=== PATIENT | female | born 1980 | race Caucasian/White ===

== ENCOUNTER 2018-02-16 08:47 | Emergency (ER) | payer SELFPAY ==
[2018-02-16] MEDS ORDERED: KETOROLAC 30 MG/ML INJ ONE (09:27)
[2018-02-16] MEDS ORDERED: NA CHLORIDE 0.9% 1,000 ML ONE ×2 (09:27→09:58)
[2018-02-16 09:31] LABS: Urine Blood TRACE (NEG); Urine Glucose NEGATIVE (NEG); Urine Protein 1+ (NEG); Urine Specific Gravity 1.015 (1.005-1.030)
[2018-02-16 09:41] LABS: Urine Bacteria <20 /HPF (<20); Urine Culture Reflex Order REFLEXED
[2018-02-16 09:59] LABS: Albumin 3.5 g/dL (3.4-5.0); Bilirubin Direct 0.2 mg/dL (0-0.2); Bilirubin Total 0.6 mg/dL (0.2-1.0); Potassium 3.7 mmol/L (3.5-5.1); Protein, Total 7.9 g/dL (6.4-8.2)
--- NOTE | 2018-02-16 10:04 | RAD REPORT ---
EXAM DESCRIPTION: CTAbdomen Pelvis W Contrast - 02/16/2018 9:57 am CLINICAL HISTORY: Abdominal pain. IV only;Abd pain;Flank pain COMPARISON: No comparisons TECHNIQUE: Biphasic CT imaging of the abdomen and pelvis was performed with 100 ml non-ionic IV cont rast. All CT scans are performed using dose optimization technique as appropriate and may include automated exposure control or mA/KV adjustment according to patient size. FINDINGS: The lung bases are clear. The liver, spleen, pancreas, adrenal glands and kidneys are within normal limits. No bowel obstruction, free air, free fluid or abscess. The appendix is normal. No evidence of signi ficant lymphadenopathy. Mild mucosal thickening involves the urinary bladder. Mild enhancement of the uroepithelium of both u reters is seen. This finding is most compatible with ascending urinary tract infection. No evidence o f pyelonephritis at this time. No suspicious bony findings. IMPRESSION: Cystitis pattern is identified with evidence of ascending urinary tract infection. No ev idence of pyelonephritis at this time.
[2018-02-16 10:07] LABS: Absolute Lymphocytes (CBC) 0.5 K/uL (0.7-4.9); Absolute Neutrophil 10.6 K/uL (1.8-8.0); Basophils % 0.2 % (0-1.3); Eosinophils % 0.3 % (0-4.4); Hematocrit 30.7 % (36.0-45.0); Lymphocytes % 3.9 % (15.3-44.8); MCH 22.8 pg (27.0-35.0); MCV 71.6 fL (80-100); MPV 9.3 fL (7.6-11.3); Monocytes % 8.3 % (3.3-12.3); RBC Red Blood Cell Count 4.28 M/uL (3.86-4.86)
--- NOTE | 2018-02-16 10:25 | ER ---
Nurse's Notes [facility] Name: Clarissa Stanley Age: 37 yrs Sex: Female : 1980 Arrival Date: 02/16/2018 Time: 08:48 Bed 20 Private MD: Diagnosis: Urinary tract infection, site not specified Presentation: 02/16 08:55 Presenting complaint: Patient states: cloudy urine, mid back pain, lower abd pain that ss began 2 days ago with fever. Transition of care: patient was not received from another setting of care. Onset of symptoms was February 14, 2018. Risk Assessment: Do you want to hurt yourself or someone else? Patient reports no desire to harm self or others. Initial Sepsis Screen: Does the patient meet any 2 criteria? HR > 90 bpm. Does the patient have a suspected source of infection? Yes: Dysuria/Frequency/Urgency/UTI. Care prior to arrival: None. 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 - Social history:: Smoking status: Patient uses tobacco products, smokes one pack cigarettes per day. - Ebola Screening: : Patient denies exposure to infectious person Patient denies travel to an Ebola-affected area in the 21 days before illness onset. Screenin:21 Abuse screen: Denies threats or abuse. Nutritional screening: No deficits noted. em Tuberculosis screening: No symptoms or risk factors identified. Fall Risk None identified. Assessment: 11:00 General: Appears in no apparent distress. uncomfortable, Behavior is calm, cooperative. em Pain: Complains of pain in right low back and right mid back and left mid back and left low back Pain currently is 10 out of 10 on a pain scale. Neuro: Level of Consciousness is awake, alert, obeys commands, Oriented to person, place, time, situation. Cardiovascular: Denies chest pain, Capillary refill < 3 seconds Patient's skin is warm and dry. Respiratory: Airway is patent Respiratory effort is even, unlabored, Respiratory pattern is regular, symmetrical. GI: Abdomen is flat, Reports nausea, Patient currently denies pain, vomiting. : No signs and/or symptoms were reported regarding the genitourinary system. EENT: No signs and/or symptoms were reported regarding the EENT system. Derm: Skin is intact, Skin is pink, warm \T\ dry. Musculoskeletal: Range of motion: intact in all extremities. 12:00 Reassessment: Patient appears in no apparent distress at this time. Patient and/or em family updated on plan of care and expected duration. Pain level reassessed. Patient is alert, oriented x 3, equal unlabored respirations, skin warm/dry/pink. Patient states feeling better. Patient states symptoms have improved. Vital Signs: 09:17 BP 131 / 78; Pulse 97; Resp 16; Temp 99.3(TE); Pulse Ox 98% on R/A; Height 5 ft. 6 in. ss (167.64 cm); Pain 10/10; 10:07 BP 100 / 61; Pulse 72; Resp 18; Pulse Ox 98% on R/A; em 11:00 BP 103 / 64; Pulse 64; Resp 20; Pulse Ox 100% on R/A; aj ED Course: 08:48 Patient arrived in ED. as 08:51 Felecia Zapata NP is PHCP. rh1 08:51 Pradip Hwang MD is Attending Physician. rh1 09:04 Jessee Moss LVN is Primary Nurse. em 09:17 Triage completed. ss 09:17 Urine collected: clean catch specimen, clear, demetrio colored. dh3 09:17 Arm band placed on right wrist. ss 09:33 Initial lab(s) drawn, sent to lab. by psychiatric nursing aide Stephanie James. Inserted dh3 saline lock: 20 gauge in right antecubital area, using aseptic technique. Blood collected. 09:49 Chest Single View XRAY In Process Unspecified. EDMS 09:53 CT completed. Patient moved to CT via wheelchair. Patient moved back from CT. cw1 09:57 CT Abd/Pelvis - W/Contrast In Process Unspecified. EDMS 10:21 Patient has correct armband on for positive identification. Bed in low position. Call em light in reach. Adult w/ patient. 11:00 No provider procedures requiring assistance completed. IV discontinued, intact, aj bleeding controlled, No redness/swelling at site. Pressure dressing applied. Administered Medications: 09:37 Drug: Ketorolac 30 mg Route: IVP; Site: right antecubital; 10:30 Follow up: Response: No adverse reaction; Pain is decreased em 09:41 Drug: NS 0.9% 1000 ml Route: IV; Rate: 1000 ml; Site: right antecubital; em 10:30 Follow up: IV Status: Completed infusion; IV Intake: 1000ml em 10:54 Drug: Rocephin - (cefTRIAXone) 1 grams Route: IVPB; Infused Over: 30 mins; Site: right aj antecubital; 11:01 Follow up: Response: No adverse reaction; IV Status: Completed infusion; IV Intake: 25mlaj Intake: 10:30 IV: 1000ml; Total: 1000ml. em 11:01 IV: 25ml; Total: 1025ml. Outcome: 10:25 Discharge ordered by . 1 11:00 Discharged to home ambulatory, with family. aj 11:00 Condition: good 11:00 Discharge instructions given to patient, family, Instructed on discharge instructions, follow up and referral plans. medication usage, Demonstrated understanding of instructions, follow-up care, medications, Prescriptions given X 1. 11:01 Patient left the ED. Signatures: Dispatcher [employer] Janae Salguero, RN Jessee Kahn, STACK MATCHER STACK MATCHER Cathy Gordillo Shelby, RN RN ss Woodley, Crystal cw1 Felecia Zapata NP FINANCIAL RESERVE CLERK [facility] Sary Adam [facility]
--- NOTE | 2018-02-16 10:26 | EDPHYS ---
Physician Documentation [facility] Name: Clarissa Stanley Age: 37 yrs Sex: Female : 1980 Arrival Date: 02/16/2018 Time: 08:48 Bed 20 Private MD: ED Physician Pradip Hwang HPI: 02/16 09:01 This 37 yrs old Female presents to ER via Ambulatory with complaints of Flank rh1 Pain, Fever, InQuicker. 09:01 The patient complains of pain in the left low back, left mid back, right mid back and rh1 right low back. The pain does not radiate. Onset: The symptoms/episode began/occurred 3 day(s) ago. Modifying factors: The symptoms are alleviated by nothing. the symptoms are aggravated by nothing. Associated signs and symptoms: Pertinent positives: dysuria, fever, nausea, Pertinent negatives: dizziness, urinary frequency, pain radiating to the lower extremities, vomiting. Severity of pain: At its worst the pain was moderate in the emergency department the pain is unchanged. The patient has not experienced similar symptoms in the past. The patient has not recently seen a physician. She began with bilateral flank pain with dysuria 3 days ago. She took AZO, and pain resolved. Her flank pain continues bilaterally, steadily getting worse. For the past 24 hours she has been running subjective fevers at home. + nausea, denies any vomiting, denies any urinary symptoms at this time.. 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 - Social history:: Smoking status: Patient uses tobacco products, smokes one pack cigarettes per day. - Ebola Screening: : Patient denies exposure to infectious person Patient denies travel to an Ebola-affected area in the 21 days before illness onset. ROS: 09:01 Cardiovascular: Negative for chest pain, palpitations, and edema. rh1 09:01 Constitutional: Positive for chills, fever, Negative for poor PO intake. 09:01 Respiratory: Positive for cough, Negative for hemoptysis, shortness of breath, wheezing. 09:01 Abdomen/GI: Positive for nausea, Negative for abdominal pain, vomiting, diarrhea. 09:01 Back: Positive for flank pain, Negative for decreased range of motion, pain with movement, radiated pain. 09:01 : Positive for burning with urination, 2 days ago, none today -- last AZO 2 days ago. 09:01 MS/extremity: Negative for decreased range of motion, pain, paresthesias, swelling, tenderness. 09:01 Neuro: Negative for altered mental status, dizziness, headache, numbness, near syncope, tingling, weakness. 09:01 All other systems are negative. Exam: 09:01 Constitutional: This is a well developed, well nourished patient who is awake, alert, rh1 and in no acute distress. Head/Face: Normocephalic, atraumatic. Neck: Trachea midline, and no cervical lymphadenopathy. Supple, full range of motion without nuchal rigidity. No Meningismus. Chest/axilla: Normal chest wall appearance and motion. Nontender with no deformity. No lesions are appreciated. Cardiovascular: Regular rate and rhythm with a normal S1 and S2. No gallops, murmurs, or rubs. No JVD. No pulse deficits. Respiratory: Lungs have equal breath sounds bilaterally, clear to auscultation. No rales, rhonchi or wheezes noted. No increased work of breathing. Abdomen/GI: Soft, non-tender, with normal bowel sounds. No distension. No guarding or rebound. No evidence of tenderness throughout. 09:01 Skin: Warm, dry with normal turgor. Normal color with no rashes, no lesions, and no evidence of cellulitis. MS/ Extremity: Pulses equal, no cyanosis. Neurovascular intact. Full, normal range of motion. 09:01 Back: pain, that is moderate, of the left low back, left mid back, right mid back and right low back, ROM is normal, painless, CVA tenderness, that is moderate, is noted bilaterally, muscle spasm, is not present. 09:01 Neuro: Orientation: is normal, to person, place \T\ time. Mentation: is normal, lucid, able to follow commands, Motor: is normal, moves all fours, Sensation: is normal, no obvious gross deficits, numbness, is not appreciated, tingling, is not appreciated, Gait: is steady, at a normal pace, without difficulty. Vital Signs: 09:17 BP 131 / 78; Pulse 97; Resp 16; Temp 99.3(TE); Pulse Ox 98% on R/A; Height 5 ft. 6 in. ss (167.64 cm); Pain 10/10; 10:07 BP 100 / 61; Pulse 72; Resp 18; Pulse Ox 98% on R/A; em 11:00 BP 103 / 64; Pulse 64; Resp 20; Pulse Ox 100% on R/A; aj MDM: 09:01 Patient medically screened. rh1 10:26 Data reviewed: vital signs, nurses notes, lab test result(s), radiologic studies, CT rh1 scan, and as a result, I will discharge patient. Data interpreted: Pulse oximetry: on room air is 98 %. Interpretation: normal. Counseling: I had a detailed discussion with the patient and/or guardian regarding: the historical points, exam findings, and any diagnostic results supporting the discharge/admit diagnosis, lab results, radiology results, the need for outpatient follow up, a family practitioner, to return to the emergency department if symptoms worsen or persist or if there are any questions or concerns that arise at home. 02/16 09:18 Order name: Amylase, Serum; Complete Time: 10:03 [facility] 02/16 09:18 Order name: Basic Metabolic Panel; Complete Time: 10:03 [facility] 02/16 09:18 Order name: CBC with Diff; Complete Time: 15:59 [facility] 02/16 09:18 Order name: Creatinine for Radiology; Complete Time: 10:03 [facility] 02/16 09:18 Order name: Hepatic Function; Complete Time: 10:03 [facility] 02/16 09:18 Order name: Lipase; Complete Time: 10:03 [facility] 02/16 09:18 Order name: Urine Microscopic Only; Complete Time: 09:42 [facility] 02/16 09:18 Order name: CT Abd/Pelvis - W/Contrast; Complete Time: 10:22 [facility] 02/16 09:20 Order name: Urine Dipstick--Ancillary (enter results); Complete Time: 09:38 02/16 09:20 Order name: Urine --Ancillary (enter results); Complete Time: 09:38 02/16 09:22 Order name: Chest Single View XRAY; Complete Time: 15:59 [facility] 02/16 09:42 Order name: Urine Culture [facility] 02/16 10:08 Order name: Manual Differential; Complete Time: 15:59 [facility] 02/16 09:07 Order name: Urine Dipstick-Ancillary (obtain specimen); Complete Time: 09:17 [facility] 02/16 09:07 Order name: Urine Test (obtain specimen); Complete Time: 09:17 [facility] 02/16 09:18 Order name: IV Saline Lock; Complete Time: 09:36 [facility] 02/16 09:18 Order name: Labs collected and sent; Complete Time: 09:36 [facility] Administered Medications: 09:37 Drug: Ketorolac 30 mg Route: IVP; Site: right antecubital; ss 10:30 Follow up: Response: No adverse reaction; Pain is decreased em 09:41 Drug: NS 0.9% 1000 ml Route: IV; Rate: 1000 ml; Site: right antecubital; em 10:30 Follow up: IV Status: Completed infusion; IV Intake: 1000ml em 10:54 Drug: Rocephin - (cefTRIAXone) 1 grams Route: IVPB; Infused Over: 30 mins; Site: right aj antecubital; 11:01 Follow up: Response: No adverse reaction; IV Status: Completed infusion; IV Intake: 25mlaj Disposition: 15:56 Co-signature as Attending Physician, Pradip Hwang MD I agree with the assessment and kdr plan of care. Disposition: 02/16/18 10:25 Discharged to Home. Impression: Urinary tract infection, site not specified. - Condition is Stable. - Discharge Instructions: Urinary Tract Infection, Adult. - Prescriptions for Macrobid 100 mg Oral Capsule - take 1 capsule by ORAL route every 12 hours for 7 days; 14 capsule. - Medication Reconciliation Form, Thank You Letter, Antibiotic Education, Prescription Opioid Use form. - Follow up: Private Physician; When: 1 - 2 days; Reason: Recheck today's complaints, Continuance of care, Re-evaluation by your physician. Follow up: Emergency Department; When: As needed; Reason: Fever > 102 F, If symptoms return, Trouble breathing, Worsening of condition. - Problem is new. - Symptoms have improved. Signatures: Dispatcher [employer] Janae Salguero, RN RN Pradip Wolf MD MD kdr Munoz, Edgar, FIELD CHECKER FIELD CHECKER Madhuri Pina, GABBY RN ss Felecia Zapata, PALOMO ENGINEERING ASSISTANT rh1 Corrections: (The following items were deleted from the chart) 11:01 10:25 02/16/2018 10:25 Discharged to Home. Impression: Urinary tract infection, site aj not specified. Condition is Stable. Forms are Medication Reconciliation Form, Thank You Letter, Antibiotic Education, Prescription Opioid Use. Follow up: Private Physician; When: 1 - 2 days; Reason: Recheck today's complaints, Continuance of care, Re-evaluation by your physician. Follow up: Emergency Department; When: As needed; Reason: Fever > 102 F, If symptoms return, Trouble breathing, Worsening of condition. Problem is new. Symptoms have improved. rh1
[2018-02-16] MEDS ORDERED: CEFTRIAXONE/SWI 1gm 1 GM/10 ML SYR ONE (10:53)
[2018-02-16 11:30] LABS: Platelet Estimate ADEQ
[2018-02-16 11:31] LABS: Blood Morphology Comment NOT SEEN (NOT SEEN)
--- NOTE | 2018-02-16 11:49 | RAD REPORT ---
EXAM DESCRIPTION: RAD - Chest Single View - 02/16/2018 9:50 am CLINICAL HISTORY: COUGH Chest pain. COMPARISON: No comparisons FINDINGS: Portable technique limits examination quality. The lungs are grossly clear. The heart is normal in size. No displaced fractures. IMPRESSION: No acute intrathoracic process suspected.
== END 2018-02-16 11:01 | disposition home or self-care (01) ==
LOC: ER 08:47
DX: N39.0 Urinary tract infection, site not specified (principal); F17.210 Nicotine dependence, cigarettes, uncomplicated; Z88.5 Allergy status to narcotic agent; Z88.6 Allergy status to analgesic agent
CPT/HCPCS: 36415; 71045; 74177; 80048; 80076; 81003; 81015; 81025; 82150; 83690; 85025; 87077; 87086; 87088; 87186; 96361; 96374; 96375; 99284; J0696; J7030; Q9967

== ENCOUNTER 2018-05-14 10:39 | Emergency (ER) | payer OTHER, SELFPAY ==
--- NOTE | 2018-05-14 11:28 | RAD REPORT ---
EXAM DESCRIPTION: RAD - Chest Single View - 05/14/2018 11:23 am CLINICAL HISTORY: CHEST PAIN Chest pain. COMPARISON: Chest Single View dated 02/16/2018 FINDINGS: Portable technique limits examination quality. The lungs are grossly clear. The heart is normal in size. No displaced fractures. IMPRESSION: No acute intrathoracic process suspected.
[2018-05-14 11:36] LABS: Absolute Lymphocytes (CBC) 1.5 K/uL (0.7-4.9); Absolute Monocytes 0.5 K/uL (0.1-1.3); Absolute Neutrophil 2.7 K/uL (1.8-8.0); Basophils % 0.6 % (0-1.3); Eosinophils % 2.2 % (0-4.4); Hematocrit 34.5 % (36.0-45.0); Lymphocytes % 30.5 % (15.3-44.8); MCH 23.1 pg (27.0-35.0); MCV 72.5 fL (80-100); Monocytes % 10.2 % (3.3-12.3); RBC Red Blood Cell Count 4.76 M/uL (3.86-4.86)
[2018-05-14 11:49] LABS: Protime INR 0.97
[2018-05-14 11:55] LABS: ALT/SGPT 19 U/L (12-78); AST/SGOT 14 U/L (15-37); Albumin 4.1 g/dL (3.4-5.0); Alkaline Phosphatase 63 U/L (45-117); BUN Blood Urea Nitrogen 8 mg/dL (7-18); Bicarbonate 25 mmol/L (21-32); Bilirubin Total 0.4 mg/dL (0.2-1.0); Glucose Level 86 mg/dL (74-106); Magnesium 2.2 mg/dL (1.8-2.4); NT PRO-BNP 65 pg/mL (<125); Potassium 3.6 mmol/L (3.5-5.1); Protein, Total 8.9 g/dL (6.4-8.2); Sodium Level 138 mmol/L (136-145); Troponin (Emerg Dept Use Only) < 0.02 ng/mL (0.0-0.045)
--- NOTE | 2018-05-14 12:07 | ER ---
Nurse's Notes [facility] Name: Clarissa Stanley Age: 37 yrs Sex: Female : 1980 Arrival Date: 05/14/2018 Time: 10:40 Bed 6 Private MD: None, None Diagnosis: Chest pain, unspecified Presentation: 05/14 10:44 Presenting complaint: Patient states: I have been having chest pain for the last 2 la1 days, I have been under a lot of stress and I have been attributing it to that but my BP was high at home (147/117). Transition of care: patient was not received from another setting of care. Onset of symptoms was May 14, 2018. Risk Assessment: Do you want to hurt yourself or someone else? Patient reports no desire to harm self or others. Initial Sepsis Screen: Does the patient meet any 2 criteria? No. Patient's initial sepsis screen is negative. Does the patient have a suspected source of infection? No. Patient's initial sepsis screen is negative. Care prior to arrival: None. 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 - Social history:: Smoking status: Patient uses tobacco products, smokes one pack cigarettes per day. - Ebola Screening: : No symptoms or risks identified at this time. Screenin:35 Abuse screen: Denies threats or abuse. Denies injuries from another. Nutritional jl7 screening: No deficits noted. Tuberculosis screening: No symptoms or risk factors identified. Fall Risk IV access (20 points). Total Yusuf Fall Scale indicates No Risk (0-24 pts). Assessment: 11:15 General: Appears in no apparent distress. uncomfortable, Behavior is calm, cooperative, jl7 appropriate for age. Pain: Complains of pain in anterior aspect of left upper chest Pain does not radiate. Pain currently is 7 out of 10 on a pain scale. Quality of pain is described as sharp, Pain began 2-3 days ago. Is continuous. Neuro: Level of Consciousness is awake, alert, obeys commands, Oriented to person, place, time, situation. Cardiovascular: Heart tones S1 S2 present Patient's skin is warm and dry. Respiratory: Airway is patent Respiratory effort is even, unlabored, Respiratory pattern is regular, symmetrical. GI: No signs and/or symptoms were reported involving the gastrointestinal system. Derm: Skin is pink, warm \T\ dry. 12:25 Reassessment: Patient appears in no apparent distress at this time. Patient states that aj1 she has decided that she does not want to be admitted, states she is going to leave but will come back if her chest pain gets worse. Dr. Weber notified. AMA paper signed. Vital Signs: 10:46 BP 129 / 75; Pulse 52; Resp 16; Temp 97.6(O); Pulse Ox 98% on R/A; Weight 65.77 kg; la1 Height 5 ft. 6 in. (167.64 cm); 11:11 BP 130 / 68; Pulse 66; Resp 12 S; Pulse Ox 100% on R/A; Pain 7/10; jl7 10:46 Body Mass Index 23.40 (65.77 kg, 167.64 cm) la1 ED Course: 10:40 Patient arrived in ED. mr 10:41 None, None is Private Physician. mr 10:45 Triage completed. la1 10:47 Arm band placed on left wrist. la1 10:48 Silviano Weber MD is Attending Physician. ps1 10:50 Konrad Watson, GABBY is Primary Nurse. jl7 10:55 EKG done, by sterile processing technologist. reviewed by Silviano Weber MD. at1 11:20 Initial lab(s) drawn, by mo, sent to lab. Inserted saline lock: 22 gauge in right jl7 antecubital area, using aseptic technique. Blood collected. 11:21 X-ray completed. Portable x-ray completed in exam room. Patient tolerated procedure jb2 well. 11:24 XRAY Chest (1 view) In Process Unspecified. EDMS 11:35 Patient has correct armband on for positive identification. Placed in gown. Bed in low jl7 position. Call light in reach. Side rails up X 1. campus monitor on. Pulse ox on. NIBP on. Warm blanket given. 11:35 Patient maintains SpO2 saturation greater than 95% on room air. jl7 12:07 Dewey Munguia MD is Referral Physician. ps1 12:22 Dewey Munguia MD is Referral Physician. ps1 12:26 No provider procedures requiring assistance completed. IV discontinued, intact, aj1 bleeding controlled, No redness/swelling at site. Pressure dressing applied. Administered Medications: No medications were administered Outcome: 12: Discharge ordered by MD. ps1 12:27 AMA AMA form signed aj1 12:27 Condition: good 12:27 Discharge instructions given to patient, Instructed on risks of leaving AMA, need to rule out cardiac cause of chest pain, return immediately if chest pain persists or gets worse or for any concerns. 12:28 Patient left the ED. aj1 Signatures: Dispatcher [employer] EDMS Jenna Delgado RN RN aj1 GreggBecca mr AngelesJogre jb2 Janae Laguna, b2b sales professional EKG Tat1 Hill Norton RN RN laKonrad Alonzo RN RN jl7 Silviano Weber MD MD ps1
--- NOTE | 2018-05-14 12:08 | EDPHYS ---
Physician Documentation [facility] Name: Clarissa Stanley Age: 37 yrs Sex: Female : 1980 Arrival Date: 05/14/2018 Time: 10:40 Bed 6 Private MD: None, None ED Physician Silviano Weber HPI: 05/14 11:21 This 37 yrs old Female presents to ER via Ambulatory with complaints of Chest ps1 Pain, High Blood Pressure. 11:21 patient states that she has had a couple of episodes of chest pain over the last couple ps1 of days. Pain is intermittent and associated with stress. Localized substernal, no radiation. Rated moderate to severe. "like someone punching me in chest". She is recently from significant other. FH of CAD. Started smoking in last 6 months. . 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 - Social history:: Smoking status: Patient uses tobacco products, smokes one pack cigarettes per day. - Ebola Screening: : No symptoms or risks identified at this time. ROS: 11:21 Constitutional: Negative for fever, chills, and weight loss, Eyes: Negative for injury, ps1 pain, redness, and discharge, Respiratory: Negative for shortness of breath, cough, wheezing, and pleuritic chest pain, Abdomen/GI: Negative for abdominal pain, nausea, vomiting, diarrhea, and constipation, Back: Negative for injury and pain, MS/Extremity: Negative for injury and deformity, Skin: Negative for injury, rash, and discoloration, Neuro: Negative for headache, weakness, numbness, tingling, and seizure. 11:21 Cardiovascular: Positive for chest pain. 11:21 Psych: Positive for anxiety. Exam: 11:21 Constitutional: This is a well developed, well nourished patient who is awake, alert, ps1 and in no acute distress. Head/Face: Normocephalic, atraumatic. Eyes: Pupils equal round and reactive to light, extra-ocular motions intact. Lids and lashes normal. Conjunctiva and sclera are non-icteric and not injected. Chest/axilla: Normal chest wall appearance and motion. Nontender with no deformity. No lesions are appreciated. Cardiovascular: Regular rate and rhythm. No gallops, murmurs, or rubs. Normal PMI, no JVD. No pulse deficits. Respiratory: Lungs have equal breath sounds bilaterally, clear to auscultation and percussion. No rales, rhonchi or wheezes noted. No increased work of breathing, no retractions or nasal flaring. Abdomen/GI: Soft, non-tender, with normal bowel sounds. No distension or tympany. No guarding or rebound. No evidence of tenderness throughout. MS/ Extremity: Pulses equal, no cyanosis. Neurovascular intact. Full, normal range of motion. Psych: Awake, alert, with orientation to person, place and time. Behavior, mood, and affect are within normal limits. Vital Signs: 10:46 BP 129 / 75; Pulse 52; Resp 16; Temp 97.6(O); Pulse Ox 98% on R/A; Weight 65.77 kg; la1 Height 5 ft. 6 in. (167.64 cm); 11:11 BP 130 / 68; Pulse 66; Resp 12 S; Pulse Ox 100% on R/A; Pain 7/10; jl7 10:46 Body Mass Index 23.40 (65.77 kg, 167.64 cm) la1 MDM: 11:16 Patient medically screened. ps1 12:04 HEART Score: History: Slightly Suspicious (0), ECG: Normal (0), Age: < or = 45 years ps1 (0), Risk Factors: 1 or 2 risk factors (1), Troponin: < or = 1 x Normal Limit (0), Total Score =. Data reviewed: vital signs, EMS record, lab test result(s), cardiac enzymes, and as a result, I will discharge patient. Data interpreted: doctor osteopathic: Pulse oximetry:. Test interpretation: by ED physician or midlevel provider: ECG. 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 Special discussion: Based on the patient's history, exam, and Dx evaluation, there is no indication for emergent intervention or inpatient Tx. It is understood by the patient/guardian that if the Sx's persist or worsen they need to return immediately for re-evaluation. 12:19 ED course: upon discussion with patient at discharge, she states that she is now having ps1 worsening chest pain. I explained that she would need to be placed in observation if she is maintaining her level of pain or if it is worsening. Patient verbalized not being able to stay. Discussed risks and benefits and patient at this point is going to leave AMA. Patient is free to return. . 05/14 10:49 Order name: CBC with Diff ps1 05/14 10:49 Order name: Magnesium ps1 05/14 10:49 Order name: NT PRO-BNP; Complete Time: 11:55 ps1 05/14 10:49 Order name: PT-INR; Complete Time: 11:55 ps1 05/14 10:49 Order name: Troponin (emerg Dept Use Only); Complete Time: 11:55 ps1 05/14 10:49 Order name: CMP; Complete Time: 11:55 ps1 05/14 10:49 Order name: XRAY Chest (1 view); Complete Time: 11:55 ps1 05/14 10:49 Order name: EKG; Complete Time: 10:50 ps1 05/14 10:49 Order name: Cardiac monitoring; Complete Time: 11:01 ps1 05/14 10:49 Order name: EKG - Nurse/Tech; Complete Time: 11: ps1 05/14 10:49 Order name: IV Saline Lock; Complete Time: 11:33 ps1 05/14 10:50 Order name: CBC with Automated Diff; Complete Time: 11:55 EDMS 05/14 10:50 Order name: Magnesium; Complete Time: 11:55 EDMS 05/14 12:08 Order name: Lipid Profile ps1 05/14 10:49 Order name: Labs collected and sent; Complete Time: 11:33 ps1 05/14 10:49 Order name: O2 Per Protocol; Complete Time: 11:00 ps1 05/14 10:49 Order name: O2 Sat Monitoring; Complete Time: 11:00 ps1 EC:54 Rate is 46 beats/min. Rhythm is regular. QRS [place] is Normal. NV interval is normal. QRS ps1 interval is normal. QT interval is normal. No Q waves. T waves are Normal. No ST changes noted. Clinical impression: Sinus bradycardia. Interpreted by me. Administered Medications: No medications were administered Disposition: 10/23/18 12:23 Patient has left against medical advice. Impression: Chest pain, unspecified. - Patients states they are going to Home. - Condition is Fair. - Discharge Instructions: Nonspecific Chest Pain. Follow up: Dewey Munguia MD; When: Upon discharge from the Emergency Department; Reason: Further diagnostic work-up, Recheck today's complaints, Re-evaluation by your physician. Follow up: Emergency Department; When: As needed; Reason: Worsening of condition, Further diagnostic work-up. - Problem is new. - Symptoms are unchanged. Signatures: Dispatcher [employer] EDMS Jenna Delgado RN RN aj1 Hill Norton RN RN la1 Silviano Weber MD MD ps1 Corrections: (The following items were deleted from the chart) 12:22 12:07 05/14/2018 12:07 Discharged to Home. Impression: Other chest pain. Condition is ps1 Stable. Forms are Medication Reconciliation Form, Thank You Letter, Antibiotic Education, Prescription Opioid Use. Follow up: Dewey Munguia; When: As needed; Reason: Recheck today's complaints, Continuance of care, Re-evaluation by your physician. ps1 12:28 12:23 05/14/2018 12:23 Patients has left against medical advice. Impression: Chest aj1 pain, unspecified. Patient states they are going to Home. Condition is Fair. Follow up: Dewey Munguia; When: Upon discharge from the Emergency Department; Reason: Further diagnostic work-up, Recheck today's complaints, Re-evaluation by your physician. Follow up: Emergency Department; When: As needed; Reason: Worsening of condition, Further diagnostic work-up. Problem is new. Symptoms are unchanged. ps1
--- NOTE | 2018-05-14 12:10 | EKG ---
Test Date: 2018-05-14 Test Time: 10:54:01 Systems Support Specialist: WILLIE MEASUREMENT RESULTS: Intervals: Rate: 46 IL: 152 QRSD: 90 QT: 444 QTc: 388 [place]: P: 23 IL: 152 QRS: 45 T: 25 INTERPRETIVE STATEMENTS: Marked sinus bradycardia Abnormal ECG No previous ECG available for comparison Electronically Signed On 05-14-18 12:09:47 CDT by Dewey Munguia
== END 2018-05-14 12:28 | disposition left against medical advice (07) ==
LOC: ER 10:39
DX: R07.9 Chest pain, unspecified (principal); F17.210 Nicotine dependence, cigarettes, uncomplicated; Z88.5 Allergy status to narcotic agent; Z88.6 Allergy status to analgesic agent
CPT/HCPCS: 36415; 71045; 80053; 80061; 83735; 83880; 84484; 85025; 85610; 93005; 99285

== ENCOUNTER 2024-10-22 13:59 | Emergency (ER) | payer SELFPAY ==
--- OUTSIDE RECORDS SUMMARY | 2024-10-22 14:04 | XMS REPORT | Continuity of Care Document ---
Author Name Unknown Address [address] [facility] [address] [place] [address] [facility] Address [address] [facility] [place] [address] Care Team Providers Care Cook [place] Name Role Phone NO, PCP Primary Care Physician Unavailab TRA Leonard Attending Clinician Unavailab EUGENIA Carballo Attending Clinician Unavailable BRYSON ROSS Attending Clinician Unavailable YVONNE ANGLIN Attending Clinician Unavailable CHYNA GAYLE Attending Clinician Unavail able EUGENIA BRAGG Admitting Clinician Unavailable BRYSON ROSS Admitting Clinician Unavailable YVONNE ANGLIN Admitting Clinician Unavailable CHYNA GAYLE Admitting Clinician Unavail able Payers Payer Name Policy Type Policy Number Effective Date Expirati on Date Source 8 B [id number] Problems Condition Name Condition Details Condition Category Status Onset Date Resolution Date Last Treatment Date Treating Clinician Comments Source Near syncope Problem [facility] Anemia Problem [facility] Allergies, Adverse Reactions, Alerts Allergy Name Allergy Type Status Severity Reaction(s) Onset Date Inactive Date Treating Clinician Comments Source OPIATES Drug Allergy Active U vomiting 12-22 06:06: 04 [facility] OPIATES Drug Allergy Active U vomiting 12-22 06:06: 04 [facility] OPIATES Drug Allergy Active U vomiting 12-22 06:06: 04 [facility] OPIATES Drug Allergy Active U vomiting 12-22 06:06: 04 [facility] OPIATES Drug Allergy Active U vomiting 12-22 06:06: 04 [facility] ([facility]) OPIATES Drug Allergy Active U vomiting 12-22 06:06: 04 [facility] ([facility]) OPIATES Drug Allergy Active U vomiting 12-22 06:06: 04 [facility] ([facility]) OPIATES Drug Allergy Active U vomiting 12-22 06:06: 04 [facility] ([facility]) OPIATES Drug Allergy Active U vomiting 12-22 06:06: 04 [facility] ([facility]) OPIATES Drug Allergy Active U vomiting 12-05 12:06: 41 [facility] ([facility]) OPIATES Drug Allergy Active U vomiting 12-05 12:06: 41 [facility] ([facility]) OPIATES Drug Allergy Active U vomiting 12-05 12:06: 41 [facility] ([facility]) OPIATES Drug Allergy Active U vomiting 12-05 12:06: 41 [facility] ([facility]) OPIATES Drug Allergy Active U vomiting 12-05 12:06: 41 [facility] ([facility]) OPIATES Drug Allergy Active U vomiting 12-05 12:06: 41 [facility] ([facility]) OPIATES Drug Allergy Active U vomiting 12-05 12:06: 41 [facility] ([facility]) OPIATES Drug Allergy Active U vomiting 12-05 12:06: 41 [facility] ([facility]) OPIATES Drug Allergy Active U vomiting 12-05 12:06: 41 [facility] ([facility]) OPIATES Drug Allergy Active U vomiting 11-30 13:27: 48 [facility] ([facility]) OPIATES Drug Allergy Active U vomiting 11-30 13:27: 48 [facility] ([facility]) OPIATES Drug Allergy Active U vomiting 11-30 13:27: 48 [facility]) OPIATES Drug Allergy Active U vomiting 11-30 13:27: 48 [facility] ([facility]) OPIATES Drug Allergy Active U vomiting 11-30 13:27: 48 [facility] ([facility]) OPIATES Drug Allergy Active U vomiting 11-30 13:27: 48 [facility] ([facility]) OPIATES Drug Allergy Active U vomiting 11-30 13:27: 48 [facility] ([facility]) OPIATES Drug Allergy Active U vomiting 11-30 13:27: 48 [facility] ([facility]) OPIATES Drug Allergy Active U vomiting 11-30 13:27: 48 [facility] ([facility]) OPIATES Drug Allergy Active U vomiting 11-30 13:27: 48 [facility] ([facility]) OPIATES Drug Allergy Active U vomiting 11-30 13:27: 48 [facility] ([facility]) OPIATES Drug Allergy Active U vomiting 11-30 13:27: 48 [facility] ([facility]) OPIATES Drug Allergy Active U vomiting 11-30 13:27: 48 [facility] ([facility]) OPIATES Drug Allergy Active U vomiting 11-30 13:27: 48 [facility] ([facility]) OPIATES Drug Allergy Active U vomiting 11-30 13:27: 48 [facility] ([facility]) OPIATES Drug Allergy Active U vomiting 11-30 10:57: 29 [facility] ([facility]) OPIATES Drug Allergy Active U vomiting 11-30 10:57: 29 [facility] ([facility]) OPIATES Drug Allergy Active U vomiting 11-30 10:57: 29 [facility] ([facility]) OPIATES Drug Allergy Active U vomiting 11-30 10:57: 29 [facility]) No Known Allergie s NA Active 11-30 10:57: 18 [facility] ([facility]) OPIATES User Defined Drug Allergy Active Adverse reaction to substance [facility]) Social History Smoking Status Start Date Stop Date Source Current Some Day Smoker 2022-11-30 14:27:24 [facility]) Medications Ordered Medication Name Filled Medication Name Start Date Stop Date Current Medication? Ordering Clinician Indication Dosage Frequency Signature (SIG) Comments Components Source lidocaine (PF) INJ 1% SOLN lidocaine (PF) INJ 1% SOLN 12-22 10:55: 00 12-22 10:18 :00 No 5mL medication :lidocaine (PF) INJ 1% SOLN|dose: 5.0 mL|route:| frequency: ONE TIME [facility] ([facility]) cefTRIAXone INJ VIAL 1 GM SOLR cefTRIAXone INJ VIAL 1 GM SOLR 12-22 10:55: 00 12-22 10:18 :00 No 1g medication :cefTRIAXo ne INJ VIAL 1 GM SOLR|dose: 1.0 g|route:IN TRAVENOUS| frequency: ONE TIME [facility] ([facility]) cefTRIAXone INJ VIAL 1 GM SOLR cefTRIAXone INJ VIAL 1 GM SOLR 12-22 06:06: 00 12-22 06:56 :23 No 1g medication :cefTRIAXo ne INJ VIAL 1 GM SOLR|dose: 1.0 g|route:IN TRAMUSCULA R|frequenc y:ONE TIME [facility] ([facility]) NS SOLN NS SOLN 12-05 17:40: 00 12-05 17:40 :00 No 1000mL medication :NS SOLN|dose: 1000.0 mL|route:I NTRAVENOUS |frequency :ONE TIME [facility] ([facility]) ferrous gluconate 324 (37.5 FE) MG ferrous gluconate 324 (37.5 FE) MG 12-05 15:28: 50 Yes 1TAB medication :ferrous gluconate 324 (37.5 FE) MG|dose:1. 0 TAB|route: ORAL|frequ ency:DAILY [facility] ([facility]) ondansetron INJ 4 MG/2 ML SOLN ondansetron INJ 4 MG/2 ML SOLN 12-05 15:23: 00 12-05 15:23 :00 No 4mg medication :ondansetr on INJ 4 MG/2 ML SOLN|dose: 4.0 mg|route:I NTRAVENOUS |frequency :ONE TIME [facility] ([facility]) ketorolac INJ 30 MG/ML SOLN ketorolac INJ 30 MG/ML SOLN 12-05 15:23: 00 12-05 15:23 :00 No 30mg medication :ketorolac INJ 30 MG/ML SOLN|dose: 30.0 mg|route:| frequency: ONE TIME [facility] ([facility]) ferrous gluconate 324 (37.5 FE) MG TABS ferrous gluconate 324 (37.5 FE) MG TABS 12-02 09:00: 00 12-01 18:12 :00 No 1TAB medication :ferrous gluconate 324 (37.5 FE) MG TABS|dose: 1.0 TAB|route: ORAL|frequ ency:DAILY [facility] ([facility]) progesteron e 100 MG CAPS progesteron e 100 MG CAPS 12-01 21:00: 00 12-01 18:12 :00 No 100mg medication :progester one 100 MG CAPS|dose: 100.0 mg|route:O RAL|freque ncy:AT BEDTIME [facility] ([facility]) ferrous gluconate 324 (37.5 FE) MG ferrous gluconate 324 (37.5 FE) MG 12-01 14:25: 25 Yes 1TAB medication :ferrous gluconate 324 (37.5 FE) MG|dose:1. 0 TAB|route: ORAL|frequ ency:DAILY [facility] ([facility]) NS SOLN NS SOLN 12-01 12:46: 00 12-01 12:46 :00 No 1000mL medication :NS SOLN|dose: 1000.0 mL|route:I NTRAVENOUS |frequency :ONE TIME [facility] lidocaine (PF) INJ 2 % SOLN lidocaine (PF) INJ 2 % SOLN 12-01 12:40: 00 12-01 12:40 :00 No 2mL medication :lidocaine (PF) INJ 2 % SOLN|dose: 2.0 mL|route:| frequency: ONE TIME [facility]) SUCcinylcho line INJ SYRINGE 200 MG/10ML SOSY SUCcinylcho line INJ SYRINGE 200 MG/10ML SOSY 12-01 12:40: 00 12-01 12:40 :00 No 200mg medication :SUCcinylc holine INJ SYRINGE 200 MG/10ML SOSY|dose: 200.0 mg|route:I NTRAVENOUS |frequency :ONE TIME [facility] ([facility]) dexAMETHaso ne INJ 4 MG/1 ML SOLN dexAMETHaso ne INJ 4 MG/1 ML SOLN 12-01 12:40: 00 12-01 12:40 :00 No 4mg medication :dexAMETHa sone INJ 4 MG/1 ML SOLN|dose: 4.0 mg|route:I NTRAVENOUS |frequency :ONE TIME [facility] propofol INJ 10 MG/ML EMUL propofol INJ 10 MG/ML EMUL 12-01 12:04: 00 12-01 12:04 :00 No 20mL medication :propofol INJ 10 MG/ML EMUL|dose: 20.0 mL|route:I NTRAVENOUS |frequency :ONE TIME [facility] fentaNYL INJ 100 MCG/2 ML SOLN fentaNYL INJ 100 MCG/2 ML SOLN 12-01 12:02: 00 12-01 12:02 :00 No 100ug medication :fentaNYL INJ 100 MCG/2 ML SOLN|dose: 100.0 ug|route:I NTRAVENOUS |frequency :ONE TIME [facility] rocuronium INJ 50 MG/5ML SOLN rocuronium INJ 50 MG/5ML SOLN 12-01 12:02: 00 12-01 12:02 :00 No 10mg medication :rocuroniu m INJ 50 MG/5ML SOLN|dose: 10.0 mg|route:I NTRAVENOUS |frequency :ONE TIME [facility] citric acid-sod citrate ORAL 334-500 MG/5ML SOLN citric acid-sod citrate ORAL 334-500 MG/5ML SOLN 12-01 11:58: 00 12-01 11:58 :00 No 15mL medication :citric acid-sod citrate ORAL 334-500 MG/5ML SOLN|dose: 15.0 mL|route:O RAL|freque ncy:ONE TIME [facility] acetaminoph en IV 1000 MG/ 100 ML SOLN acetaminoph en IV 1000 MG/ 100 ML SOLN 12-01 11:58: 00 12-01 11:58 :00 No 1000mg medication :acetamino phen IV 1000 MG/ 100 ML SOLN|dose: 1000.0 mg|route:I NTRAVENOUS |frequency :ONE TIME [facility] metoclopram emmanuelle INJ 10 MG/2 ML SOLN metoclopram emmanuelle INJ 10 MG/2 ML SOLN 12-01 11:57: 00 12-01 11:57 :00 No 10mg medication :metoclopr amide INJ 10 MG/2 ML SOLN|dose: 10.0 mg|route:I NTRAVENOUS |frequency :ONE TIME [facility] midazolam INJ 2 MG/2 ML SOLN midazolam INJ 2 MG/2 ML SOLN 12-01 11:57: 00 12-01 11:57 :00 No 2mg medication :midazolam INJ 2 MG/2 ML SOLN|dose: 2.0 mg|route:I NTRAVENOUS |frequency :ONE TIME [facility] famotidine INJ 20 MG/2 ML SOLN famotidine INJ 20 MG/2 ML SOLN 12-01 11:49: 00 12-01 11:49 :00 No 20mg medication :famotidin e INJ 20 MG/2 ML SOLN|dose: 20.0 mg|route:I NTRAVENOUS |frequency :ONE TIME [facility] oxytocin INJ 10 UNIT/1 ML SOLN oxytocin INJ 10 UNIT/1 ML SOLN 12-01 11:37: 00 12-01 11:37 :00 No 10UN medication :oxytocin INJ 10 UNIT/1 ML SOLN|dose: 10.0 UN|route:I NTRAVENOUS |[facility] :[facility] methylergon ovine INJ 0.2 MG/1 ML SOLN methylergon ovine INJ 0.2 MG/1 ML SOLN 12-01 11:37: 00 12-01 11:37 :00 No .2mg medication :methylerg onovine INJ 0.2 MG/1 ML SOLN|dose: 0.2 mg|route:I NTRAMUSCUL AR|frequen cy:ONE TIME [facility] acetaminoph en IV 1000 MG/ 100 ML SOLN acetaminoph en IV 1000 MG/ 100 ML SOLN 12-01 06:32: 00 12-01 08:19 :23 No 1000mg medication :acetamino phen IV 1000 MG/ 100 ML SOLN|dose: 1000.0 mg|route:I NTRAVENOUS |frequency :[facility] TIME [facility] NS SOLN NS SOLN 12-01 03:00: 00 12-01 14:25 :25 No 500mL medication :NS SOLN|dose: 500.0 mL|route:I NTRAVENOUS |frequency :EVERY 3 AM [facility] NS FLUSH SOLN NS FLUSH SOLN 11-30 20:41: 00 12-01 14:25 :25 No 10mL medication :NS FLUSH SOLN|dose: 10.0 mL|route:I NTRAVENOUS |frequency : NEEDED [facility] butalbital- APAP-caffei ne 50-325-40 MG TABS butalbital- APAP-caffei ne 50-325-40 MG TABS 11-30 20:34: 00 12-01 14:25 :25 No 1TAB medication :butalbita l-APAP-caf feine 50-325-40 MG TABS|dose: 1.0 TAB|route: ORAL|frequ ency:EVERY 6 HOURS NEEDED [facility] ([facility]) ondansetron INJ 4 MG/2 ML SOLN ondansetron INJ 4 MG/2 ML SOLN 11-30 20:34: 00 12-01 14:25 :25 No 4mg medication :ondansetr on INJ 4 MG/2 ML SOLN|dose: 4.0 mg|route:I NTRAVENOUS |frequency :EVERY 6 HOURS NEEDED [facility] ([facility]) furosemide INJ 20 MG/2 ML SOLN furosemide INJ 20 MG/2 ML SOLN 11-30 13:22: 00 12-01 18:12 :00 No 20mg medication :furosemid e INJ 20 MG/2 ML SOLN|dose: 20.0 mg|route:I NTRAVENOUS |frequency :ONE-TIME UNSCHEDULE D ORDER [facility] ([facility]) diphenhydrA MINE INJ (benadryl) 50 MG/ML SOLN diphenhydrA MINE INJ (benadryl) 50 MG/ML SOLN 11-30 13:22: 00 12-01 18:12 :00 No 25mg medication :diphenhyd rAMINE INJ (benadryl) 50 MG/ML SOLN|dose: 25.0 mg|route:I NTRAVENOUS |frequency :ONE-TIME UNSCHEDULE D ORDER [facility] ([facility]) methylPREDN ISolone INJ 40 MG SOLR methylPREDN ISolone INJ 40 MG SOLR 11-30 13:22: 00 12-01 18:12 :00 No 40mg medication :methylPRE DNISolone INJ 40 MG SOLR|dose: 40.0 mg|route:I NTRAVENOUS |frequency :ONE-TIME UNSCHEDULE D ORDER [facility] ([facility]) acetaminoph en 325 MG TABS acetaminoph en 325 MG TABS 11-30 13:22: 00 12-01 18:12 :00 No 650mg medication :acetamino phen 325 MG TABS|dose: 650.0 mg|route:O RAL|freque ncy:ONE-TI ME UNSCHEDULE D ORDER [facility] ([facility]) acetaminoph en 325 MG TABS acetaminoph en 325 MG TABS 11-30 13:19: 00 12-01 14:25 :25 No 650mg medication :acetamino phen 325 MG TABS|dose: 650.0 mg|route:O RAL|freque ncy:EVERY 4 HOURS NEEDED [facility] ([facility]) NS FLUSH SOLN NS FLUSH SOLN 11-30 13:17: 00 12-01 14:25 :25 No 10mL medication :NS FLUSH SOLN|dose: 10.0 mL|route:I NTRAVENOUS |frequency : NEEDED [facility]) Vital Signs Vital Name Observation Time Observation Value Comments S ource Body temperature 2022-12-01 16:00:00 97.4 [degF] [facility]) Diastolic blood pressure 2022-12-01 16:00:00 72 mm[Hg] [facility]) Heart rate 2022-12-01 16:00:00 78 /min [facility]) Oxygen saturation in Arterial blood by Pulse oximetry 2022-12-01 16:00:00 99 /min [facility]) Respiratory rate 2022-12-01 16:00:00 16 /min [facility]) Systolic blood pressure 2022-12-01 16:00:00 114 mm[Hg] [facility]) Body height 2022-11-30 14:26:58 165.1 cm [facility] Body mass index (BMI) [Ratio] 2022-11-30 14:26:58 26.29 kg/m2 [facility] Body weight Measured 2022-11-30 14:26:58 71.668 kg [facility]) Procedures Procedure Date / Time Performed Performing Clinicia n Source EXAM UNDER ANESTHESIA 2022-12-01 00:00:00 [facility] Encounters Start Date/Time End Date/Time Encounter Type Admission Type Attending Clinicians Care Facility Care Department Encounter ID Source 2024-07-24 15:15:12 Inpatient SPTP SPT [id number] [facility] 2022-05-11 00:00:00 2024-07-24 15:14:00 [id number] 2024-01-22 14:14:00 2024-01-22 16:40:00 Emergency ER TRA [facility] [id number] [facility] 2023-02-16 09:24:00 2023-02-16 11:01:00 Outpatient Encounter 1 [facility] [id number] [facility]) 2022-12-22 10:18:00 2022-12-22 10:18:00 Outpatient Encounter 3 BRYSON ROSS [facility] [id number] [facility]) 2022-12-05 12:05:00 2022-12-05 20:15:00 Outpatient Encounter 1 KATHERINE ANGLIN [facility] [id number] [facility]) 2022-11-30 10:54:00 2022-12-01 18:12:00 [facility] Encounter 1 [facility] [id number] [facility] Results Test Description Test Time Test Comments Results Resul t Comments Source KNEE 4 VIEWS 2023-01-21 8 10:06:00 [facility] 1980 Sex: F *[facility] [place] [id number] IMAGING REPORTPatient Name: Serina SPRAGUE of Service: [id number]: [id number] Sex: F Order #: [id number] [facility] 1980 [facility] Number: [id number] Record Number: [id number] Hospital Number: [id number] Physician: Kimberlee BRAGG Physician: ALVERTO WEINBERGRIGHT KNEE 4 VIEWS 02/16/2023 9:55 AMHistory: Pain with Trauma/InjuryCompari sons: None Available.FINDINGS:T here is no acute fracture or dislocation.There are no suspicious lytic or blastic bone lesions.There are no definite osseous erosions or bony destruction detected.There is no radiopaque foreign body.There is no soft tissue gas identified.IMPRESSIO N:No acute bony abnormality is identified.Umair salmeron Signed By: Dileep Green M.D., 02/16/2023 10:04 AMLegallsophia authenticated by NORMA PAULA 2023-02-16 10:04:23 Knee X-ray 4 views 2023-01-21 8 10:04:23 ORDER 100: KNEE 4 VIEWS (LOINC: 87002-5)ORDER DATE: February 16, 2023 2:32:00 PM [facility] US PELVIS W/TRANSVAGINAL 2022-11-20 7 06:50:00 [facility] 1980 Sex: F *[address] [id number] IMAGING REPORTPatient Name: Serina SPRAGUE of Service: [id number]: [id number] Sex: F Order #: [id number] Room: ERSDOB: 1980 X-Ray Number: [id number] Record Number: [id number] Hospital Number: [id number] Physician: KATHERINE ANGLIN Physician: JOHANNA SCOTT -US PELVIS W/TRANSVAGINAL, US PELVIS NON-OB COMPLETE 12/05/2022 5:43 PMHistory: vag bleedingComparisons: None Available.FINDINGS:T he uterus measures 8.9 x 4.5 cm. There is a 2.6 x 2.1 cm uterine fibroid.The endometrial stripe measures 0.4 cm without endometrial fluidcollection.The right ovary measures 3.4 x 2.1 x 3.2 cm.The left ovary measures 3.3 x 2.3 x 3.9 cm.There is flow to the VISUALIZED ovary (ovaries).There is no solid adnexal mass seen.There is no free fluid in the pelvis.IMPRESSION:2. 6 cm uterine fibroid. Otherwise unremarkable study.Electronically Signed By: Dileep Green M.D., 12/06/2022 6:47 AMLegally authenticated by NORMA PAULA 2022-12-06 06:47:47 Pelvis US transvaginal 2022-11-20 7 06:47:47 ORDER 600: US PELVIS W/TRANSVAGINAL (LOINC: 89177-8)ORDER DATE: December 05, 2022 10:41:00 PM [facility] US PELVIS NON-OB COMPLETE 2022-11-20 6 18:01:00 [facility] 1980 Sex: F *[address] [id number] IMAGING REPORTPatient Name: Serina SPRAGUE of Service: [id number]: [id number] Sex: F Order #: [id number] [facility] 1980 X-[facility] Number: [id number] Record Number: [id number] Hospital Number: [id number] Physician: ,Ordering Physician: JOHANNA SCOTT -HISTORY:Pelvic PainEXAM:US PELVIS NON-OB COMPLETEFindings: The uterus measures 8.9 x 4.8 x 5.8 cm. Endometrial thickness is 4mm. A 2.6 cm intramural uterine fibroid isnoted. Follicular cyst in the ovaries are noted.Impression: Small uterine fibroid.Electronical ly signed by Devan Browning on 12/05/2022 180 CTLegally authenticated by MITCHEL HARTMAN 2022-12-05 15:35:00 Choriogonadotropin.beta subunit ( [id number] 17:10:00* Test Item Value Reference Range Interpretation Comme nts Specimen source [Identifier] of Body fluid (test code = 06232-6) SERUM N Reagent Lot number (test cod e = 20675-7) [id number] N [facility])Pelvis [id number] 15:35:00ORDER 500: US PELVIS NON- OB COMPLETE (LOINC: 43793-8)ORDER DATE: December 05, 2022 8:35:00 PM [facility] [place])BASIC METABOLIC [id number] 14:52:00* Test Item Value Reference Range Interpretation Comme nts SODIUM (test code = NA) 138 MMOL/L 137-145 K+ (test code = KSERUM) 4.8 MMOL/L 3.5-5.1 CHLORIDE (test code = CL) 102 MMOL/L 98-107 CO2 (test code = CO2) 24 MMOL/L 22-30 BUN (test code = BUN) 11 MG/DL 7-17 CREA (test code = CREA) 0.6 MG/DL 0.7-1.2 L GLUCOSE (test code = GLUCOSE) 80 MG/DL 70-99 Fasting glucos e normal <100 MG/DL- [employer] [place] [employer] recommendation CALCIUM (test code = CABLOOD) 9.3 MG/DL 8.4-10.2 GFR (test code = GFR) 117.0 mL/min/1.73m2 See_Comment A GFR of >90 mL/min/1.73m2 is considered normal. The GFR calculation on patients over 70 years of age is not validated by the vehicle care specialist and may not represent the patients true renal function. [Automated message] The system which generated this result transmitted reference range: 59-. The reference range was not used to interpret this result as normal/abnormal. [id number] 14:50:00* Test Item Value Reference Range Interpretation Comme nts WBC (test code = WBC) 8.5 K/UL 3.5-10.9 RBC (test code = RBC) 4.69 M/UL 4.0-5.0 HGB (test code = HGB) 10.4 G/DL 11.5-15.5 L HCT (test code = HCT) 35.4 % 34-46 MCV (test code = MCV) 75.5 FL 80-98 L MCH (test code = MCH) 22.2 PG 28-32 L MCHC (test code = MCHC) 29.4 G/DL 32.5-36.5 L RDW (test code = RDW) 19.2 % 11.5-14.5 H PLT (test code = PLT) 533 K/UL 150-450 H MPV (test code = MPV) 10.7 FL 7.4-10.4 H MANDIFF (test code = MANDIFF) NO SCAN (test code = SCAN) NO NEUT% (test code = NEUT%) 62.1 % 40-75 LYMPH% (test code = LYMPH%) 23.9 % 24-44 L MONO% (test code = MONO%) 8.8 % 0-13 EOS% (test code = EOS%) 4.2 % 0-4 H BASO % (test code = BASO%) 0.6 % 0-2 IG (test code = IG) 0 % 0-1 IG% (test code = IG%) 0.4 % 0-1 IG% = Metamyeloc ytes, Myelocytes, and Promyelocytes. (Immature neutrophils not including "bands".) > 3% IG indicates risk of sepsis NRBC% (test code = NRBC%) 0 /100 WBC ABS NEUT (test code = NEUT) 5.3 K/UL 1.2-7.2 CBC W Auto Differential panel - [id number] 14:50:00* Test Item Value Reference Range Interpretation Comme nts Leukocytes other [Identifier ] in Blood by Automated count (test code = 73044-2) 8.5 K/UL 3.5-10.9 N Erythrocytes [#/volume] in B lood (test code = 13355-2) 4.69 M/UL 4.0-5.0 N Hemoglobin A/Hemoglobin.tota l in Blood (test code = 4546-8) 10.4 G/DL 11.5-15.5 L Hematocrit [Volume Fraction] of Blood (test code = 58980-6) 35.4 % 34.0-46.0 N Erythrocyte mean corpuscular volume [Entitic volume] (test code = 60565-8) 75.5 FL 80.0-98.0 L Erythrocyte mean corpuscular hemoglobin [Entitic mass] (test code = 58503-5) 22.2 PG 28.0-32.0 L Erythrocyte mean corpuscular hemoglobin concentration [Mass/volume] (test code = 69727-3) 29.4 G/DL 32.5-36.5 L Erythrocyte distribution wid th [Ratio] (test code = 40254-7) 19.2 % 11.5-14.5 H Platelets panel - Blood by Automated count (test code = 20026-9) 533 K/UL 150.0-450.0 H Platelet mean volume [Entiti c volume] in Blood by Automated count (test code = 84492-4) 10.7 FL 7.4-10.4 H Neutrophils.segmented/100 leukocytes in Blood (test code = 78619-8) 62.1 % 40.0-75.0 N Lymphocytes Variant/100 leuk ocytes in Blood (test code = 61263-8) 23.9 % 24.0-44.0 L Lymphocytes+Monocytes/100 leukocytes in Blood (test code = 4662-3) 8.8 % 0.0-13.0 N Eosinophils [#/volume] in Bl ood (test code = 97948-4) 4.2 % 0.0-4.0 H Basophils [#/volume] in Bloo d (test code = 15071-7) 0.6 % 0.0-2.0 N Immature granulocytes/100 leukocytes in Blood (test code = 82123-5) 0.4 % 0.0-1.0 N Nucleated erythrocytes [#/vo lume] in Blood (test code = 54402-0) 0 /100 WBC N Neutrophils [#/volume] in Bl ood (test code = 18057-7) 5.3 K/UL 1.2-7.2 N [facility] ([place])Basic metabolic 2000 panel - Serum or Plasma 2022-12-05 14:46:00* Test Item Value Reference Range Interpretation Comme nts Sodium [Moles/volume] in Blood (test code = 2947-0) 138 MMOL/L 137.0-145.0 N Potassium [Moles/volume] in Blood (test code = 6298-4) 4.8 MMOL/L 3.5-5.1 N Chloride [Moles/volume] in Blood (test code = 2069-3) 102 MMOL/L 98.0-107.0 N Carbon dioxide, total [Moles/volume] in Blood (test code = 14052-6) 24 MMOL/L 22.0-30.0 N Urea nitrogen [Mass/volume] in Serum or Plasma (test code = 3094-0) 11 MG/DL 7.0-17.0 N Creatinine [Mass/volume] in Blood (test code = 34896-1) 0.6 MG/DL 0.7-1.2 L Glucose [Mass/volume] in Blood (test code = 2339-0) 80 MG/DL 70.0-99.0 N Calcium [Mass/volume] in Serum or Plasma (test code = 35900-4) 9.3 MG/DL 8.4-10.2 N Estimated or measured glomerular filtration rate less than 50 percent [- Reported] (test code = 74808-5) 117.0 mL/min/1.73m2 N [facility])[id number] 12:38:00* Test Item Value Reference Range Interpretation Comme nts BLOOD TYPE (test code = TYPE) O Rh Positive Comment for Females Rhogam may be indicated for patient depending baby's Rh status. ANTIBODY SCREEN (test code = SCREEN) NEGATIVE NEGATIVE Blood type and Indirect antibody screen panel -2022-12-05 12:38:00* Test Item Value Reference Range Interpretation Comme nts ABO + Rh group [Type] in Blo od (test code = 882-1) O Rh Positive N [facility])PATHOLOGY [id number] 13:28:00* Test Item Value Reference Range Interpretation Comme nts HEADER (test code = HEADER) [facility] 1980 Sex: F * PATH (test code = PATH) TISSUE CONSULTATION REPORTBAGONZALES MEMORIAL HOSPITALDEPARTMENT OF PATHOLOGYP.O. PAVAN ARANDA [address] MIRELA VILLALOBOS M.D.ROBERT L. HUTTON, M.D.CHARLES E. BURNS, M.D. Melinda t: NE SPRAGUE 1980 42 FRoom:Hosp#: [id number] Ord ering Physician: NATHAN GAYLE Rec.: 3Date of Proc.: 12/01/2022Lab No.: [id number] C linical History:Excessive vaginal bleeding and irregular cyclesFINAL ANATOMIC DIAGNOSIS:ENDOMETRIUM, CURETTAGE:CHRONIC ENDOMETRITIS; FEATURES SUGGESTIVE OF ADENOMYOSIS;NEGATIVE FOR HYPERPLASIA OR MALIGNANCYMICROSCOPIC EXAMINATION:This endometrium is difficult to date. The endometrial glandsappear weakly proliferative. In other areas the glands show evidenceof secretory conversion. The stroma also has a variable appearance,ranging from proliferative appearing to late secretory with decidualchange. There is a prominent chronic endometritis throughout. Thereare focal features suggestive of adenomyosis (best seen in level 1).There is no evidence of hyperplasia or malignancy.GROSS APPEARANCE:The specimen is received in formalin labeled "endometrialcurettage." It is irregular fragments of bloody brown-red tissuesand blood clot. The entire specimen aggregates to about 3 x 2 x 1.5cm. Wrapped TE in three cassettes.PATHOLOGIST: Alexx Weston Electronically Signed: 12/04/2022 PATHOLOGY [id number] 13:28:00ORDER 2100: PATHOLOGY REPORT (LOINC: )ORDER DATE: December 01, 2022 8:12:00 PM [facility], [place], operated by [facility])HCT/[id number] 17:28:00* Test Item Value Reference Range Interpretation Comme nts HGB (test code = HGB) 9.3 G/DL 11.5-15.5 L HCT (test code = HCT) 30.8 % 34-46 L MCV (test code = MCV) 77.0 FL 80-98 L REC EIVED BLOOD MCHC (test code = MCHC) 30.2 G/DL 32.5-36.5 L Hemoglobin and Hematocrit panel - [id number] 17:28:00* Test Item Value Reference Range Interpretation Comme nts Hemoglobin A/Hemoglobin.tota l in Blood (test code = 4546-8) 9.3 G/DL 11.5-15.5 L Hematocrit [Volume Fraction] of Blood (test code = 94280-1) 30.8 % 34.0-46.0 L Erythrocyte mean corpuscular volume [Entitic volume] (test code = 82073-1) 77.0 FL 80.0-98.0 L Erythrocyte mean corpuscular hemoglobin concentration [Mass/volume] (test code = 90681-7) 30.2 G/DL 32.5-36.5 L [facility])[id number] 08:06:00* Test Item Value Reference Range Interpretation Comme nts SODIUM (test code = NA) 138 MMOL/L 137-145 K+ (test code = KSERUM) 4.2 MMOL/L 3.5-5.1 CHLORIDE (test code = CL) 106 MMOL/L 98-107 CO2 (test code = CO2) 26 MMOL/L 22-30 BUN (test code = BUN) 10 MG/DL 7-17 CREA (test code = CREA) 0.6 MG/DL 0.7-1.2 L GLUCOSE (test code = GLUCOSE) 76 MG/DL 70-99 Fasting glucos e normal <100 MG/DL- [place] [employer] recommendation CALCIUM (test code = CABLOOD) 7.8 MG/DL 8.4-10.2 L TOTPROT (test code = TOTPROT) 6.0 G/DL 6.3-8.2 L ALBUMIN (test code = ALBSERUM) 3.3 G/DL 3.5-5.0 L BILITOT (test code = BILITOT) <0.1 MG/DL 0.2-1.3 L AST (test code = AST) 21 U/L 15-46 PHOSALK (test code = PHOSALK) 58 U/L 38-126 ALTV (test code = ALTV) 15 U/L 13-69 GFR (test code = GFR) 117.0 mL/min/1.73m2 See_Comment A GFR of >90 mL/min/1.73m2 is considered normal. The GFR calculation on patients over 70 years of age is not validated by the vehicle care specialist and may not represent the patients true renal function. [Automated message] The system which generated this result transmitted reference range: 59-. The reference range was not used to interpret this result as normal/abnormal. Comprehensive metabolic 2000 panel - Serum or [id number] 08:01:00* Test Item Value Reference Range Interpretation Comme nts Sodium [Moles/volume] in Blood (test code = 2947-0) 138 MMOL/L 137.0-145.0 N Potassium [Moles/volume] in Blood (test code = 6298-4) 4.2 MMOL/L 3.5-5.1 N Chloride [Moles/volume] in Blood (test code = 2069-3) 106 MMOL/L 98.0-107.0 N Carbon dioxide, total [Moles/volume] in Blood (test code = 35389-7) 26 MMOL/L 22.0-30.0 N Urea nitrogen [Mass/volume] in Serum or Plasma (test code = 3094-0) 10 MG/DL 7.0-17.0 N Creatinine [Mass/volume] in Blood (test code = 60052-3) 0.6 MG/DL 0.7-1.2 L Glucose [Mass/volume] in Blood (test code = 2339-0) 76 MG/DL 70.0-99.0 N Calcium [Mass/volume] in Serum or Plasma (test code = 96851-1) 7.8 MG/DL 8.4-10.2 L Protein [Mass/volume] in Serum or Plasma (test code = 2885-2) 6.0 G/DL 6.3-8.2 L Albumin [Presence] in Serum or Plasma (test code = 26476-6) 3.3 G/DL 3.5-5.0 L Bilirubin direct and total panel [Mass/volume] - Serum or Plasma (test code = 77056-9) <0.1 0.2-1.3 L Aspartate aminotransferase [Enzymatic activity/volume] in Serum or Plasma (test code = 1920-8) 21 U/L 15.0-46.0 N Alkaline phosphatase [Enzymatic activity/volume] in Serum or Plasma (test code = 6768-6) 58 U/L 38.0-126.0 N Alanine aminotransferase [Enzymatic activity/volume] in Serum or Plasma (test code = 1742-6) 15 U/L 13.0-69.0 N Estimated or measured glomerular filtration rate less than 50 percent [- Reported] (test code = 37492-1) 117.0 mL/min/1.73m2 N [facility] [id number] 04:16:00* Test Item Value Reference Range Interpretation Comme nts WBC (test code = WBC) 7.6 K/UL 3.5-10.9 RBC (test code = RBC) 3.11 M/UL 4.0-5.0 L HGB (test code = HGB) 6.5 G/DL 11.5-15.5 LL HCT (test code = HCT) 22.3 % 34-46 L MCV (test code = MCV) 71.7 FL 80-98 L MCH (test code = MCH) 20.9 PG 28-32 L MCHC (test code = MCHC) 29.1 G/DL 32.5-36.5 L RDW (test code = RDW) 17.2 % 11.5-14.5 H PLT (test code = PLT) 361 K/UL 150-450 MPV (test code = MPV) 10.8 FL 7.4-10.4 H MANDIFF (test code = MANDIFF) NO SCAN (test code = SCAN) NO NEUT% (test code = NEUT%) 67.8 % 40-75 LYMPH% (test code = LYMPH%) 19.7 % 24-44 L MONO% (test code = MONO%) 9.7 % 0-13 EOS% (test code = EOS%) 2.1 % 0-4 BASO % (test code = BASO%) 0.4 % 0-2 IG (test code = IG) 0 % 0-1 IG% (test code = IG%) 0.3 % 0-1 IG% = Metamyeloc ytes, Myelocytes, and Promyelocytes. (Immature neutrophils not including "bands".) > 3% IG indicates risk of sepsis NRBC% (test code = NRBC%) 0 /100 WBC ABS NEUT (test code = NEUT) 5.2 K/UL 1.2-7.2 RESULTS VERIFIED.C'd TO T/ 0416/LACBC W Auto Differential panel - Blood 2022-12-01 04:16:00* Test Item Value Reference Range Interpretation Comme nts Leukocytes other [Identifier ] in Blood by Automated count (test code = 43283-5) 7.6 K/UL 3.5-10.9 N Erythrocytes [#/volume] in B lood (test code = 25886-6) 3.11 M/UL 4.0-5.0 L Hemoglobin A/Hemoglobin.tota l in Blood (test code = 4546-8) 6.5 G/DL 11.5-15.5 LL Hematocrit [Volume Fraction] of Blood (test code = 02245-0) 22.3 % 34.0-46.0 L Erythrocyte mean corpuscular volume [Entitic volume] (test code = 31522-5) 71.7 FL 80.0-98.0 L Erythrocyte mean corpuscular hemoglobin [Entitic mass] (test code = 89521-5) 20.9 PG 28.0-32.0 L Erythrocyte mean corpuscular hemoglobin concentration [Mass/volume] (test code = 06544-9) 29.1 G/DL 32.5-36.5 L Erythrocyte distribution wid th [Ratio] (test code = 82279-4) 17.2 % 11.5-14.5 H Platelets panel - Blood by Automated count (test code = 42555-8) 361 K/UL 150.0-450.0 N Platelet mean volume [Entiti c volume] in Blood by Automated count (test code = 94908-1) 10.8 FL 7.4-10.4 H Neutrophils.segmented/100 leukocytes in Blood (test code = 04919-4) 67.8 % 40.0-75.0 N Lymphocytes Variant/100 leuk ocytes in Blood (test code = 33999-7) 19.7 % 24.0-44.0 L Lymphocytes+Monocytes/100 leukocytes in Blood (test code = 4662-3) 9.7 % 0.0-13.0 N Eosinophils [#/volume] in Bl ood (test code = 30709-8) 2.1 % 0.0-4.0 N Basophils [#/volume] in Bloo d (test code = 37517-3) 0.4 % 0.0-2.0 N Immature granulocytes/100 leukocytes in Blood (test code = 13024-9) 0.3 % 0.0-1.0 N Nucleated erythrocytes [#/vo lume] in Blood (test code = 16859-3) 0 /100 WBC N Neutrophils [#/volume] in Bl ood (test code = 74477-7) 5.2 K/UL 1.2-7.2 N [facility])[id number] 15:57:00* Test Item Value Reference Range Interpretation Comme nts GLUCOSE (test code = URGLU) NEGATIVE MG/DL NEG-100 BILIRUBN (test code = URBILI) NEGATIVE NEGATIVE KETONE (test code = URKET) NEGATIVE MG/DL NEGATIVE BLOOD (test code = URBLD) LARGE NEGATIVE UR PH (test code = URPH) 8.5 5.0-7.5 H PROTEIN (test code = URPRO) 30 MG/DL NEGATIVE NITRITES (test code = URNIT) NEGATIVE NEGATIVE UROBILINGEN (test code = URURO) 0.2 EU/DL 0.2-1.0 LEUKOCYT (test code = URLEU) MODERATE NEGATIVE UA COLOR (test code = UA COLOR) RED YELLOW CLARITY (test code = CLARITY) TURBID CLEAR SP GRAV (test code = URSPGRAV) 1.017 1.000-1.025 UAMICRO (test code = UAMICRO) YES WBC (test code = URWBC) 64 /HPF 0-5 H RBC (test code = URRBC) >900 /HPF 0-2 H CASTS (test code = CAST) 1 /LPF 0-3 UR EPI (test code = EPI) 65 /LPF BACTERIA (test code = BACTERIA) NEGATIVE NONE CHEMISTRY RESULTS MAY BE OBSCURED BY UA COLORUrinalysis panel - Urine by Auto 2022-11-30 15:57:00* Test Item Value Reference Range Interpretation Comme nts pH of Urine (test code = 2756-5) 8.5 1 5.0-7.5 H Protein [Presence] in Urine (test code = 2887-8) 30 MG/DL NEGATIVE N Urobilinogen [Presence] in U rine (test code = 54484-8) 0.2 EU/DL 0.2-1.0 N Specific gravity of Urine (t est code = 2965-2) 1.017 1 1.0-1.025 N Leukocytes [Presence] in Uri ne sediment by Light microscopy (test code = 70691-2) 64 /HPF 0.0-5.0 H Erythrocytes [Presence] in U rine sediment by Light microscopy (test code = 18871-4) >900 0.0-2.0 H Casts [Presence] in Urine by Automated (test code = 59184-5) 1 /LPF 0.0-3.0 N Epithelial cells [Presence] in Urine sediment by Light microscopy (test code = 41953-1) 65 /LPF N [facility])INDIRECT [id number] 14:04:00* Test Item Value Reference Range Interpretation Comme nts COOMBSIN (test code = COOMBSIN) NEGATIVE NEGATIVE Indirect antiglobulin test.poly specific [id number] 14:04:00Negative [facility])1 UNIT [id number] 13:21:00* Test Item Value Reference Range Interpretation Comme [facility] PI (test code = PI) RBC SI (test code = SI) Transfused Packed erythrocytes units given [#]2022-11-30 13:21:00* Test Item Value Reference Range Interpretation Comme [facility] Serology and blood bank stud ies (set) (test code = 28816-2) RBC N SI (test code = SI) Transfused N [facility] HIV 12:57:00* Test Item Value Reference Range Interpretation Comme [facility] HIV 1/2 AB (test code = SCRN HIV) NEGATIVE NEGATIVE This test is us ed for SCREENING purposes only. All reactive results are prelimenary and confirmation results will follow. HIV 1+2 Ab [Units/volume] in [id number] 12:54:00NegativeSk[facility] CampusUS PELVIS NON-OB [id number] 12:41:00 [facility] 1980 Sex: F[address] [id number] IMAGING REPORTPatient Name: LONNIE SPRAGUEHaven of Service: [id number]: 42 Sex: F Order #: [id number] Room: ERDOB: 1980 X-Ray Number: [id number] Record Number: [id number] Hospital Number: [id number] Physician: JOHANNA SCOTT -Ordering Physician: DANAE CASTELLANOS -Transabdominal pelvic ultrasound 11/30/2022History: Abnormal heavy vaginal bleedingComparison: NoneThe uterus is anteverted measuring 8.5 x 6.3 x 5.8 cm. An apparent fibroidon the left side of the uterine body measures up to 2.1 cm.This isabutting the serosal surface. Endometrial thickness is 14 mm without fluidcollection.Right ovary measures 3.4 x 1.6 x 2.9 cm. Left ovary measures 3.6 x 1.8 x4.0 cm. Both are normal. Vascular flow is seen on both sides.There is no pelvic free fluid. Urinary bladder is normal.Impression:Nonspecific mild endometrial stripe prominence without fluid or definitivemass.Apparent left-sided uterinefibroid without other acute process.Electronically Signed By: Conrado Robins M.D., 11/30/2022 12:38 PMLegally authenticated by JULIENNE COHEN 2022-11-30 12:38:42Pelvis [id number] 12:38:42ORDER 600: US PELVIS NON-OB COMPLETE (LOINC: 03560-3)ORDER DATE: November 30, 2022 4:19:00 PM [facility], [place], operated [facility])[id number] 12:15:00* Test Item Value Reference Range Interpretation Comme nts SODIUM (test code = NA) 139 MMOL/L 137-145 K+ (test code = KSERUM) 4.2 MMOL/L 3.5-5.1 CHLORIDE (test code = CL) 107 MMOL/L 98-107 CO2 (test code = CO2) 21 MMOL/L 22-30 L BUN (test code = BUN) 10 MG/DL 7-17 CREA (test code = CREA) 0.5 MG/DL 0.7-1.2 L GLUCOSE (test code = GLUCOSE) 75 MG/DL 70-99 Fasting glucos e normal <100 MG/DL- [place] [employer] recommendation CALCIUM (test code = CABLOOD) 8.8 MG/DL 8.4-10.2 TOTPROT (test code = TOTPROT) 7.9 G/DL 6.3-8.2 ALBUMIN (test code = ALBSERUM) 4.6 G/DL 3.5-5.0 BILITOT (test code = BILITOT) 0.3 MG/DL 0.2-1.3 AST (test code = AST) 30 U/L 15-46 PHOSALK (test code = PHOSALK) 66 U/L 38-126 ALTV (test code = ALTV) 20 U/L 13-69 GFR (test code = GFR) 144.0 mL/min/1.73m2 See_Comment A GFR of >90 mL/min/1.73m2 is considered normal. The GFR calculation on patients over 70 years of age is not validated by the vehicle care specialist and may not represent the patients true renal function. [Automated message] The system which generated this result transmitted reference range: 59-. The reference range was not used to interpret this result as normal/abnormal. ISTAT [id number] 12:13:00* Test Item Value Reference Range Interpretation Comme nts ISTAT HCG (test code = ISHCG) <5.0 IU/L A value of less than or equal to <5 IU/L is considered NEGATIVE A value between 5 IU/L and 25 IU/L is considered INDETERMINATE A value of >25 IU/L is considered POSITIVE Choriogonadotropin.beta subunit [Presence] in [id number] 12:13:00* Test Item Value Reference Range Interpretation Comme nts Choriogonadotropin.beta subu nit [Presence] in Specimen (test code = 03822-8) <5.0 N [facility] CampusComprehensive metabolic 2000 panel - Serum or P 2022-11-30 12:11:00* Test Item Value Reference Range Interpretation Comme nts Sodium [Moles/volume] in Blood (test code = 2947-0) 139 MMOL/L 137.0-145.0 N Potassium [Moles/volume] in Blood (test code = 6298-4) 4.2 MMOL/L 3.5-5.1 N Chloride [Moles/volume] in Blood (test code = 2069-3) 107 MMOL/L 98.0-107.0 N Carbon dioxide, total [Moles/volume] in Blood (test code = 49563-1) 21 MMOL/L 22.0-30.0 L Urea nitrogen [Mass/volume] in Serum or Plasma (test code = 3094-0) 10 MG/DL 7.0-17.0 N Creatinine [Mass/volume] in Blood (test code = 00230-3) 0.5 MG/DL 0.7-1.2 L Glucose [Mass/volume] in Blood (test code = 2339-0) 75 MG/DL 70.0-99.0 N Calcium [Mass/volume] in Serum or Plasma (test code = 58071-1) 8.8 MG/DL 8.4-10.2 N Protein [Mass/volume] in Serum or Plasma (test code = 2885-2) 7.9 G/DL 6.3-8.2 N Albumin [Presence] in Serum or Plasma (test code = 56947-9) 4.6 G/DL 3.5-5.0 N Bilirubin direct and total panel [Mass/volume] - Serum or Plasma (test code = 19385-4) 0.3 MG/DL 0.2-1.3 N Aspartate aminotransferase [Enzymatic activity/volume] in Serum or Plasma (test code = 1920-8) 30 U/L 15.0-46.0 N Alkaline phosphatase [Enzymatic activity/volume] in Serum or Plasma (test code = 6768-6) 66 U/L 38.0-126.0 N Alanine aminotransferase [Enzymatic activity/volume] in Serum or Plasma (test code = 1742-6) 20 U/L 13.0-69.0 N Estimated or measured glomerular filtration rate less than 50 percent [- Reported] (test code = 64798-0) 144.0 mL/min/1.73m2 N [facility])[id number] 11:58:00* Test Item Value Reference Range Interpretation Comme nts WBC (test code = WBC) 9.3 K/UL 3.5-10.9 RBC (test code = RBC) 4.02 M/UL 4.0-5.0 HGB (test code = HGB) 8.3 G/DL 11.5-15.5 L HCT (test code = HCT) 29.6 % 34-46 L MCV (test code = MCV) 73.6 FL 80-98 L MCH (test code = MCH) 20.6 PG 28-32 L MCHC (test code = MCHC) 28.0 G/DL 32.5-36.5 L RDW (test code = RDW) 17.2 % 11.5-14.5 H PLT (test code = PLT) 511 K/UL 150-450 H MPV (test code = MPV) 10.6 FL 7.4-10.4 H MANDIFF (test code = MANDIFF) NO SCAN (test code = SCAN) NO NEUT% (test code = NEUT%) 77.2 % 40-75 H LYMPH% (test code = LYMPH%) 13.0 % 24-44 L MONO% (test code = MONO%) 6.3 % 0-13 EOS% (test code = EOS%) 2.7 % 0-4 BASO % (test code = BASO%) 0.4 % 0-2 IG (test code = IG) 0 % 0-1 IG% (test code = IG%) 0.4 % 0-1 IG% = Metamyeloc ytes, Myelocytes, and Promyelocytes. (Immature neutrophils not including "bands".) > 3% IG indicates risk of sepsis NRBC% (test code = NRBC%) 0 /100 WBC ABS NEUT (test code = NEUT) 7.1 K/UL 1.2-7.2 CBC W Auto Differential panel - [id number] 11:58:00* Test Item Value Reference Range Interpretation Comme nts Leukocytes other [Identifier ] in Blood by Automated count (test code = 69367-5) 9.3 K/UL 3.5-10.9 N Erythrocytes [#/volume] in B lood (test code = 61722-3) 4.02 M/UL 4.0-5.0 N Hemoglobin A/Hemoglobin.tota l in Blood (test code = 4546-8) 8.3 G/DL 11.5-15.5 L Hematocrit [Volume Fraction] of Blood (test code = 05587-1) 29.6 % 34.0-46.0 L Erythrocyte mean corpuscular volume [Entitic volume] (test code = 44670-7) 73.6 FL 80.0-98.0 L Erythrocyte mean corpuscular hemoglobin [Entitic mass] (test code = 67857-0) 20.6 PG 28.0-32.0 L Erythrocyte mean corpuscular hemoglobin concentration [Mass/volume] (test code = 18938-1) 28.0 G/DL 32.5-36.5 L Erythrocyte distribution wid th [Ratio] (test code = 78856-9) 17.2 % 11.5-14.5 H Platelets panel - Blood by Automated count (test code = 36645-9) 511 K/UL 150.0-450.0 H Platelet mean volume [Entiti c volume] in Blood by Automated count (test code = 65178-1) 10.6 FL 7.4-10.4 H Neutrophils.segmented/100 leukocytes in Blood (test code = 82259-2) 77.2 % 40.0-75.0 H Lymphocytes Variant/100 leuk ocytes in Blood (test code = 51151-9) 13.0 % 24.0-44.0 L Lymphocytes+Monocytes/100 leukocytes in Blood (test code = 4662-3) 6.3 % 0.0-13.0 N Eosinophils [#/volume] in Bl ood (test code = 56132-9) 2.7 % 0.0-4.0 N Basophils [#/volume] in Bloo d (test code = 00557-0) 0.4 % 0.0-2.0 N Immature granulocytes/100 leukocytes in Blood (test code = 06789-6) 0.4 % 0.0-1.0 N Nucleated erythrocytes [#/vo lume] in Blood (test code = 22744-4) 0 /100 WBC N Neutrophils [#/volume] in Bl ood (test code = 37917-5) 7.1 K/UL 1.2-7.2 N [facility])ABO/[id number] 11:19:00* Test Item Value Reference Range Interpretation Comme [facility] BLOOD TYPE (test code = TYPE) O Rh Positive Comment for Females Rhogam may be indicated for patient depending baby's Rh status. ABO + Rh group [Type] in [id number] 11:19:00* Test Item Value Reference Range Interpretation Comme nts ABO + Rh group [Type] in Blo od (test code = 882-1) O Rh Positive N [facility] Consult Notes Date/Time Note Provider Source 2022-12-01 10:44:52 Referring Physician SHIRIN Subjective/Physical Exam 42y/o MULTIPAROUS, MWF WITH 19yr H/O PROLONGED, HEAVY MENSTRUAL CYCLES. 2 WEKS POST LAST CYCLE; BE[facility] HEAV[facility]. 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 A&O x 4 ABD NON TENDER EXTREM NT PELVIC DEFERRED U/S SHOWS WHAT APPEARS TO BE A SUB-SEROSAL FIBROID OF AROUND 2cm; UNLIKELY CONTRIBUTING TO CURRENT SITUATION Patient Problems/Allergies Assessments EXCESSIVE VAG BLEEDING WITH IRREG CYCLES Allergies OPIATES - vomiting Lab Results 0641 Chemistry SODIUM 138 K+ 4.2 CHLORIDE 106 CO2 26 BUN 10 CREA 0.6 (L) GLUCOSE 76 CALCIUM 7.8 (L) TOTPROT 6.0 (L) ALBUMIN 3.3 (L) BILITOT <0.1 (L) AST 21 PHOSALK 58 ALTV 15 GFR 117.0 0152 Hematology WBC 7.6 RBC 3.11 (L) HGB 6.5 (L) HCT 22.3 (L) MCV 71.7 (L) MCH 20.9 (L) MCHC 29.1 (L) RDW 17.2 (H) PLT 361 MPV 10.8 (H) MANDIFF No SCAN No NEUT% 67.8 LYMPH% 19.7 (L) MONO% 9.7 EOS% 2.1 BASO 0.4 IG 0 IG% 0.3 NRBC% 0 ABS NEUT 5.2 1429 Urinalysis GLUCOSE Negative BILIRUBN Negative KETONE Negative BLOOD Large UR PH 8.5 (H) PROTEIN 30 NITRITES Negative UROBILIN 0.2 LEUKOCYT Moderate UA COLOR Red CLARITY Turbid SP GRAV 1.017 UAMICRO Yes WBC 64 (H) RBC >900 (H) CASTS 1 UR EPI 65 BACTERIA Negative 1200 Point Of Care Testing* ISHCG <5.0 1130 Chemistry SCRN HIV Negative SODIUM 139 K+ 4.2 CHLORIDE 107 CO2 21 (L) BUN 10 CREA 0.5 (L) GLUCOSE 75 CALCIUM 8.8 TOTPROT 7.9 ALBUMIN 4.6 BILITOT 0.3 AST 30 PHOSALK 66 ALTV 20 GFR 144.0 1130 Hematology WBC 9.3 RBC 4.02 HGB 8.3 (L) HCT 29.6 (L) MCV 73.6 (L) MCH 20.6 (L) MCHC 28.0 (L) RDW 17.2 (H) PLT 511 (H) MPV 10.6 (H) MANDIFF No SCAN No NEUT% 77.2 (H) LYMPH% 13.0 (L) MONO% 6.3 EOS% 2.7 BASO 0.4 IG 0 IG% 0.4 NRBC% 0 ABS NEUT 7.1 Vital Signs 0800 T 98.4 HR 82 RR 16 BP 113 / 72 O2Sat 97 0400 T 98.6 HR 90 RR 16 BP 129 / 72 O2Sat 97 Intake and Output previous current encounter day day cumulative Intake 310 610 920 Output - - - Balance 310 610 920 Active Medications ferrous gluconate 324 (37.5 FE) MG 1 TAB PO DAILY NS 500 ML IVP Q3AM Flush Line with 20 cc before and after IVPBChange every 24 hours NS FLUSH 10 ML IVP PRN for LINE FLUSH ondansetron INJ 4 MG/2 ML 4 MG IVP Q6PRN for NAUSEA/VOMITING ejxcoouplp-PPBY-hcogskho 50-325-40 MG 1 TAB PO Q6PRN for MILD TO MODERATE PAIN acetaminophen 650 MG PO ONE-UNSCHD For transfusion reaction (Administer and notify ) methylPREDNISolone INJ 40 MG IVP ONE-UNSCHD For transfusion reaction (Administer and notify MD) diphenhydrAMINE INJ (benadryl) 50 MG/ML 25 MG IVP ONE-UNSCHD For transfusion reaction (Administer and notify MD) furosemide INJ 20 MG/2 ML 20 MG IVP ONE-UNSCHD between units of PRBCs NS FLUSH 10 ML IVP PRN for LINE FLUSH acetaminophen 650 MG PO Q4PRN for FEVER >100.9 OR MILD PAIN Plan WILL SCHEDULE FOR EUA, D&C/INDICATED PROCEDURES TODAY HAS RECEIVED 1u PRBC WITH 2ND PLANNED OK TO D/C HOME AFTER PROCEDURE. F/U WITH ME 2 WEEKS TO REVIEW RESULTS AND PLAN LONG-TERM MANAGEMENT Electronically signed by VANDANA Herron on [address] [facility] History and Physical Notes Date/Time Note Provider Source 2022-12-01 10:04:56 Subjective/Physical Exam Primary care provider: None Chief Complaint: Near syncope, vaginal bleeding History of present illness: 42-year-old female with no known chronic medical problems who has had a problem with heavy vaginal bleeding for quite some time presented to the emergency room due to near syncopal episode. Patient reports she felt very weak and fell in the shower. Patient states that she started having heavy vaginal bleeding on Sunday. Patient states that this has been an ongoing problem since having a tubal ligation in the past.Patient denies chest pain and shortness of breath. Patient denies nausea, vomiting and diarrhea. Past medical history: Heavy vaginal bleeding Past Surgical History: Tubal ligation, hand surgery Family History: Discussed and noncontributory Social History: Smokes 2 PPD, daily ETOH use, denies IVDU. Lives at home with spouse, employed. Review of systems: (10 pt. ROS reviewed and negative except what is listed in HPI) PHYSICAL EXAM: GENERAL APPEARANCE: NAD NECK: Supple RESPIRATORY: Good air entry CARDIOVASCULAR: RR, S1, S2 ABDOMEN: Soft, NT, ND, +BS EXTREMITIES: No edema NEURO: AAOx3 INTEGUMATORY: No skin lesions on gross exam Assessment/Plan: 1. Heavy vaginal bleeding 2. Near syncope 3. Acute blood loss anemia 4. Leftuterine fibroid 5. Tobacco abuse 6. 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 Hold off antiplatelet and anticoagulants until Hb stable and risk of bleeding lower. Vital Signs 0800 T 98.4 HR 82 RR 16 BP 113 / 72 O2Sat 97 0400 T 98.6 HR 90 RR 16 BP 129 / 72 O2Sat 97 Lab Results 0641 Chemistry SODIUM 138 K+ 4.2 CHLORIDE 106 CO2 26 BUN 10 CREA 0.6 (L) GLUCOSE 76 CALCIUM 7.8 (L) TOTPROT 6.0 (L) ALBUMIN 3.3 (L) BILITOT <0.1 (L) AST 21 PHOSALK 58 ALTV 15 GFR 117.0 0152 Hematology WBC 7.6 RBC 3.11 (L) HGB 6.5 (L) HCT 22.3 (L) MCV 71.7 (L) MCH 20.9 (L) MCHC 29.1 (L) RDW 17.2 (H) PLT 361 MPV 10.8 (H) MANDIFF No SCAN No NEUT% 67.8 LYMPH% 19.7 (L) MONO% 9.7 EOS% 2.1 BASO 0.4 IG 0 IG% 0.3 NRBC% 0 ABS NEUT 5.2 1429 Urinalysis GLUCOSE Negative BILIRUBN Negative KETONE Negative BLOOD Large UR PH 8.5 (H) PROTEIN 30 NITRITES Negative UROBILIN 0.2 LEUKOCYT Moderate UA COLOR Red CLARITY Turbid SP GRAV 1.017 UAMICRO Yes WBC 64 (H) RBC >900 (H) CASTS 1 UR EPI 65 BACTERIA Negative 1200 Point Of Care Testing* ISHCG <5.0 1130 Chemistry SCRN HIV Negative SODIUM 139 K+ 4.2 CHLORIDE 107 CO2 21 (L) BUN 10 CREA 0.5 (L) GLUCOSE 75 CALCIUM 8.8 TOTPROT 7.9 ALBUMIN 4.6 BILITOT 0.3 AST 30 PHOSALK 66 ALTV 20 GFR 144.0 1130 Hematology WBC 9.3 RBC 4.02 HGB 8.3 (L) HCT 29.6 (L) MCV 73.6 (L) MCH 20.6 (L) MCHC 28.0 (L) RDW 17.2 (H) PLT 511 (H) MPV 10.6 (H) MANDIFF No SCAN No NEUT% 77.2 (H) LYMPH% 13.0 (L) MONO% 6.3 EOS% 2.7 BASO 0.4 IG 0 IG% 0.4 NRBC% 0 ABS NEUT 7.1 Intake and Output previous current encounter day day cumulative Intake 310 610 920 Output - - - Balance 310 610 920 Active Medications NS 500 ML IVP Q3AM Flush Line with 20 cc before and after IVPBChange every 24 hours NS FLUSH 10 ML IVP PRN for LINE FLUSH ondansetron INJ 4 MG/2 ML 4 MG IVP Q6PRN for NAUSEA/VOMITING [id number] 50-325-40 MG 1 TAB PO Q6PRN for MILD TO MODERATE PAIN acetaminophen 650 MG PO ONE-UNSCHD For transfusion reaction (Administer and notify MD) methylPREDNISolone INJ 40 MG IVP ONE-UNSCHD For transfusion reaction (Administer and notify MD) diphenhydrAMINE INJ (benadryl) 50 MG/ML 25 MG IVP ONE-UNSCHD For transfusion reaction (Administer and notify MD) furosemide INJ 20 MG/2 ML 20 MG IVP ONE-UNSCHD between units of PRBCs NS FLUSH 10 ML IVP PRN for LINE FLUSH acetaminophen 650 MG PO Q4PRN for FEVER >100.9 OR MILD PAIN Allergies OPIATES - vomiting Electronically signed by DEB IVORY on 1012 [facility] Progress Notes Date/Time Note Provider Source 2022-12-01 09:47:47 AFTER FURTHER REVIEW OF RECORDS, AND STATED H/O HEAVY CYCLES, WILL CHANGE PLANS AND ASK TO DO EXAM UNDER ANESTHESIA, PROBABLE D&C/INDICATED PROCEDURES Electronically signed by VANDANA Herron on 0948 [facility] 2022-12-01 09:42:54 PT ADMITTED FOR HEAV Y VAG BLEEDING ANEMIA, SIGNIFICANT U/S (TRANS-ABD ONLY) SHOWS WHAT APPEARS TO BE SUBSEROSAL, SMALL FIBROID AND MILDLY THICKENED ENDOMETRIUM (GENERALLY POOR IMAGES) WILL ASK TO TRANSPORT PATIENT TO 3RD FLOOR FOR EXAMINATION Electronically signed by VANDANA Herron on 0944 [facility] 2022-11-30 18:40:17 Subjective/Physical Exam Primary care provider: None Chief Complaint: near syncope, vaginal bleeding History of present illness: 42-year-old female with no known chronic medical problems who has had a problem with heavy vaginal bleeding for quite some time presented to the emergency room due to near syncopal episode. Patient reports that patient felt very weak and fell in the shower. Patient states that she started having heavy vaginal bleeding on Sunday. Patient states that this has been an ongoing problem since having a tubal ligation in the past. Patient reports having seen gynecology about this problem. Hemoglobin noted to be 8.3. Patient denies chest pain and shortness of breath. Patient denies nausea, vomiting and diarrhea. Patient is being admitted for further evaluation and treatment. Past medical history: Heavy vaginal bleeding Past Surgical History: tubal ligation, hand surgery Family History: noncontributory Social History: unremarkable Code Status: full Tobacco: 2 packs per day IV drug use: denies ETOH use: daily Marital Status: Occupation: employed Living Situation: home with spouse Review of systems: (10 pt. ROS reviewed and negative except what is listed in HPI and noted below) Constitutional: Negative for fever, Negative for chills, weight loss. patient reports heavy vaginal bleeding since having a tubal ligation in the past. Patient reports near syncopal episode today. Eyes: Negative for injury, pain, redness, discharge, or acute changes. ENT: Negative for injury, sore throat, rhinorrhea, ear pain, or acute changes. Neck: Negative for pain, swelling, tenderness, erythema, or acute changes. Respiratory: Negative for cough, Negative for dyspnea on exertion, hemoptysis, shortness of breath, sputum production. Abdomen/GI: Negative for nausea, vomiting, diarrhea, Negative for abdominal pain, abdominal distension, hematemesis. All other systems are negative. Cardiovascular: Negative for chest pain, palpitations, edema, or acute changes. Back: Negative for injury, deformity, pain, decreased ROM, or acute changes. : Negative for injury, bleeding, discharge, swelling, dysuria, or acute changes. MS/Extremity: Negative for injury, deformity, pain, decreased ROM, swelling, or acute changes. Skin: Negative for injury, rash, discoloration, ecchymosis, swelling, or acute changes. Neuro: Negative for headache, weakness, numbness, tingling, seizure, or acute changes. Physical Exam: General: No acute distress noted. HEENT: Normocephalic. Atraumatic. PERRLA. EOM intact. Sclera clear. Mucous membranes pink and moist. Nose and throat clear. Trachea midline. Neck supple. No JVD. No adenopathy. Chest/Lungs: Clear to auscultation bilaterally. Respirations even and unlabored. Symmetrical expansion. No intercostal retraction. No gross bony deformity. Supploemental Oxygen: Room air Oxygen Saturation: 99% Heart: Regular rate and rhythm. Normal S1 S2. No gallop, murmur, click or friction rub heard. Abdomen: Soft, non-tender, non- distended. BS + in all quadrants. No palpable masses or organomegaly noted. Extremities: No clubbing, cyanosis or edema noted. No calf tenderness. Capillary refill less than 3 seconds. No Homans sign. No signs and symptoms of infection. Pelvic/Rectal: Exam deferred. Neuro: Moves all extremities. No motor or sensory deficits. Deep tendon reflexes intact. Coordination intact. Skin: Warm and Dry. No rash noted. No wounds noted. Assessment/Plan: 1. heavy vaginal bleeding /uterine fibroid 2. near syncope 3. anemia secondary to 1.- Monitor hemoglobin and hematocrit 4. tobacco abuse- tobacco cessation information and discussion 5. alcohol abuse- alcohol cessation information and discussion Vital Signs 1600 T 99.6 HR 99 RR 15 BP 106 / 69 O2Sat 98 1432 T 98.2 HR 91 RR 16 BP 121 / 70 O2Sat 96 Lab Results 1429 Urinalysis GLUCOSE Negative BILIRUBN Negative KETONE Negative BLOOD Large UR PH 8.5 (H) PROTEIN 30 NITRITES Negative UROBILIN 0.2 LEUKOCYT Moderate UA COLOR Red CLARITY Turbid SP GRAV 1.017 UAMICRO Yes WBC 64 (H) RBC >900 (H) CASTS 1 UR EPI 65 BACTERIA Negative 1200 Point Of Care Testing* ISHCG <5.0 1130 Chemistry SCRN HIV Negative SODIUM 139 K+ 4.2 CHLORIDE 107 CO2 21 (L) BUN 10 CREA 0.5 (L) GLUCOSE 75 CALCIUM 8.8 TOTPROT 7.9 ALBUMIN 4.6 BILITOT 0.3 AST 30 PHOSALK 66 ALTV 20 GFR 144.0 1130 Hematology WBC 9.3 RBC 4.02 HGB 8.3 (L) HCT 29.6 (L) MCV 73.6 (L) MCH 20.6 (L) MCHC 28.0 (L) RDW 17.2 (H) PLT 511 (H) MPV 10.6 (H) MANDIFF No SCAN No NEUT% 77.2 (H) LYMPH% 13.0 (L) MONO% 6.3 EOS% 2.7 BASO 0.4 IG 0 IG% 0.4 NRBC% 0 ABS NEUT 7.1 Intake and Output previous current encounter day day cumulative Intake - 10 10 Output - - - Balance - 10 10 Active Medications acetaminophen 650 MG PO ONE-UNSCHD For transfusion reaction (Administer and notify MD) methylPREDNISolone INJ 40 MG IVP ONE-UNSCHD For transfusion reaction (Administer and notify MD) diphenhydrAMINE INJ (benadryl) 50 MG/ML 25 MG IVP ONE-UNSCHD For transfusion reaction (Administer and notify MD) furosemide INJ 20 MG/2 ML 20 MG IVP ONE-UNSCHD between units of PRBCs NS FLUSH 10 ML IVP PRN for LINE FLUSH acetaminophen 650 MG PO Q4PRN for FEVER >100.9 OR MILD PAIN Allergies OPIATES - vomiting Electronically signed by AASHISH OSMAN NP on 1843 Electronically signed by SHIRIN Davidson on [address] [place] [id number] 2022-11-30 18:40:06 Discussed patient an d patient's findings with on-call physician who agrees to accept patient admission. Electronically signed by AASHISH OSMAN NP on 1839 Electronically signed by SHIRIN Davidson on [address] [place] [id number] Notes Date/Time Note Provider Source 2024-07-25 05:09:57 No Results HOMERO HENRY [facility] [place] 2024-07-25 05:09:57 No Results HOMERO HENRY [facility] [place] 2023-02-16 10:04:[address] [address] DIAGNOSTIC IMAGING REPORT Patient Name: NE SPRAGUE Date of Service: 02-16-2023 Age: 42 Sex: F Order #: [id number] Room: [facility] : 1980 X-Ray Number: [id number] Hospital Number: [id number] Admitting Physician: EUGENIA BRAGG Ordering Physician: ALVERTO WEINBERG - RIGHT KNEE 4 VIEWS 02/16/2023 9:55 AM History: Pain with Trauma/Injury Comparisons: None Available. FINDINGS: There is no acute fracture or dislocation. There are no suspicious lytic or blastic bone lesions. There are no definite osseous erosions or bony destruction detected. There is no radiopaque foreign body. There is no soft tissue gas identified. IMPRESSION: No acute bony abnormality is identified. Electronically Signed By: Dileep Green M.D., 02/16/2023 10:04 AM Legally authenticated by NORMA PAULA 2023-02-16 10:04:23 [facility]EN [facility] 2022-12-20 05:01:20 Near syncope ; Anemia ; [facility] PATIENT OPEN ORDERS Code System Description Frequency Occurrences Priority Start Date Ordering Physician Updated By [facility] OBSERVATION STATUS ONE TIME 0 Routine November 30, 2022 6:01:00 PM [facility] GAYLEJoel CLEMENTE S [id number] on November 30, 2022 6:02:00 PM UT ADMITTO [facility] ADMITTING MD AND DIAGNOSIS ONE TIME 0 Routine November 30, 2022 6:17:00 PM UT SULTANA SOUZA on November 30, 2022 6:20:00 PM UT REG [facility] REGULAR DIET ONE TIME 0 Timed November 30, 2022 6:17:00 PM UT SULTANA SOUZA on November 30, 2022 6:20:00 PM UT OTP [facility] O2 TO KEEP SPO2 > 90% ONE TIME 0 Routine November 30, 2022 6:17:00 PM UT SULTANA SOUZA on November 30, 2022 6:20:00 PM UT CONSULT [facility] CONSULT ONE TIME 0 Routine December 01, 2022 11:16:00 AM UT JENA Mcclellan NP [id number] on December 01, 2022 11:17:00 AM UT OFIRMIND [facility] RX INDICATION - OFIRMEV ONE TIME 0 Routine December 01, 2022 11:32:00 AM [facility] JENA Mcclellan NP [id number] on December 01, 2022 11:34:00 AM [facility] SCHEDULED PROCEDURES Code System Description Status Scheduled Date Updated By Patient scheduled procedure information is not available. [facility]2023-05-31 05:01:20PATIENT GOALS [facility]2023-05-29 03:30:36Near syncope ; Anemia ;[facility]2023-05-29 03:30:36 PATIENT OPEN ORDERS Code System Description Frequency Occurrences Priority Start Date Ordering Physician Updated By [facility] PL[facility] IN OBSERVATION STATUS ONE TIME 0 Routine November 30, 2022 6:01:00 PM UTC GAYLEJoel CANALESMickie S [id number] on November 30, 2022 6:02:00 PM UTC ADMITTO [facility]HOST ADMITTING MD AND DIAGNOSIS ONE TIME 0 Routine November 30, 2022 6:17:00 PM UTC SULTANA SOUZA on November 30, 2022 6:20:00 PM UTC REG [facility] REGULAR DIET ONE TIME 0 Timed November 30, 2022 6:17:00 PM UTC SULTANA SOUZA on November 30, 2022 6:20:00 PM UT OTP [facility] O2 TO KEEP SPO2 > 90% ONE TIME 0 Routine November 30, 2022 6:17:00 PM UTC SULTANA SOUZA on November 30, 2022 6:20:00 PM UTC CONSULT [facility] CONSULT ONE TIME 0 Routine December 01, 2022 11:16:00 AM UT JENA Mcclellan NP [id number] on December 01, 2022 11:17:00 AM UT [facility] RX INDICATION - OFIRMEV ONE TIME 0 Routine December 01, 2022 11:32:00 AM UTC JENA Mcclellan NP [id number] on December 01, 2022 11:34:00 AM UTC SCHEDULED PROCEDURES Code System Description Status Scheduled Date Updated By Patient scheduled procedure information is not available. [facility]2023-05-29 03:30:36PATIENT GOALS [facility]2023-05-17 06:47:[address] [address] DIAGNOSTIC IMAGING REPORT Patient Name: NE SPRAGUE Date of Service: 12-05-2022 Age: 42 Sex: F Order #: [id number] Room: [facility] : 1980 X-Ray Number: [id number] Hospital Number: [id number] Admitting Physician: KATHERINE ANGLIN Ordering Physician: JOHANNA SCOTT - US PELVIS W/TRANSVAGINAL, US PELVIS NON-OB COMPLETE 12/05/2022 5:43 PM History: vag bleeding Comparisons: None Available. FINDINGS: The uterus measures 8.9 x 4.5 cm. There is a 2.6 x 2.1 cm uterine fibroid. The endometrial stripe measures 0.4 cm without endometrial fluid collection. The right ovary measures 3.4 x 2.1 x 3.2 cm. The left ovary measures 3.3 x 2.3 x 3.9 cm. There is flow to the VISUALIZED ovary (ovaries). There is no solid adnexal mass seen. There is no free fluid in the pelvis. IMPRESSION: 2.6 cm uterine fibroid. Otherwise unremarkable study. Electronically Signed By: Dileep Green M.D., 12/06/2022 6:47 AM Legally authenticated by NORMA PAULA 2022-12-06 06:47:47MEHUL GREEN 2022-12-05 15:35:00[place] [address] DIAGNOSTIC IMAGING REPORT Patient Name: NE SPRAGUE Date of Service: 12-05-2022 Age: 42 Sex: F Order #: [id number] Room: [facility] : 1980 X-Ray Number: [id number] Hospital Number: [id number] Admitting Physician: , Ordering Physician: JOHANNA SCOTT - HISTORY:Pelvic Pain EXAM:US PELVIS NON-OB COMPLETE Findings: The uterus measures 8.9 x 4.8 x 5.8 cm. Endometrial thickness is 4 mm. A 2.6 cm intramural uterine fibroid is noted. Follicular cyst in the ovaries are noted. Impression: Small uterine fibroid. 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 PREOPERATIVE DIAGNOSES 1. Anemia. 2. Excessive vaginal bleeding. 3. Irregular cycle. 4. Multipara. POSTOPERATIVE DIAGNOSES 1. Anemia. 2. Excessive vaginal bleeding. 3. Irregular cycle. 4. Multipara. PROCEDURE 1. Exam under anesthesia. 2. Hysteroscopy. 3. Dilation and curettage. ANESTHESIA LMA. FINDINGS Unremarkable hysteroscopy without evidence of polyp. Moderate amount of endometrial curettings. Good hemostasis and cosmesis. ESTIMATED BLOOD LOSS With procedure, 75 cc. COMPLICATIONS None. DRAINS Red rubber at beginning of the case. SPECIMENS Endometrial curettings. TIMEOUT Was taken. INDICATIONS In general, she is a 42-year-old multiparous white female who was admitted yesterday for signs and symptoms of anemia and was found to be anemic. She received 1 unit of blood cells with another one planned. States a long, 19-year history of heavy cycles. She has had a well-woman exam 1 year ago with unremarkable findings. Had her unremarkable cycle 2 weeks ago and then, remarkably, began to bleed 5 days ago and has bled very heavily since. Began to have feelings of dizziness and weakness yesterday, which led her to present to the ER. Legally authenticated by VANDANA Herron 2022-12-01 03:59:03 All preoperative ultrasound was done transabdominally as the images are less than ideal. It showed what appeared to be 1.4 cm endometrium and a 2 cm fibroid, which appears to be subserosal, likely noncontributory. Discussed with patient. Recommended evaluation of the endometrium and then consideration of a long-term management. Consent signed. DESCRIPTION OF PROCEDURE Taken to the operating room and placed in supine position where anesthesia was initiated. Placed in dorsal lithotomy position, prepped and draped in usual sterile fashion. After assuring adequate anesthesia, speculum was inserted. Hysteroscope was inserted, which showed no gross evidence of polyp. Allis clamp was used to hold the cervix. No dilation was required and curved stainless steel curette was inserted and alternating that with a Kevorkian-type curette. Curettage carried out until good uterine cry was felt throughout. Tissue was sent for permanent pathology. Instruments were removed. Cervix was seen to be hemostatic. At this point, procedure was felt to have achieved maximum efficacy. Count was correct. She was returned to supine position, left in the care of Anesthesia. She will return to the floor and then discharge home. Continue p.o. iron. See me again in 1 to 2 weeks for review of pathology and come up with long-term plan. César Ross MD TT: 12/01/2022 13:05:58 RLE/MODL /[id number] cc: Chyna Gayle MD Electronically Authenticated and Edited by: Bryson Ross MD on 12/01/2022 03:59 PM CDT Legally authenticated by VANDANA Herron 2022-12-01 03:59:03CINTHYA ROSS 2022-11-30 12:38:42[place] [address] DIAGNOSTIC IMAGING REPORT Patient Name: NE SPRAGUE Date of Service: 11-30-2022 Age: 42 Sex: F Order #: [id number] Room: [facility] : 1980 X-Ray Number: [id number] Hospital Number: [id number] Admitting Physician: JOHANNA SCOTT - Ordering Physician: DANAE CASTELLANOS - Transabdominal pelvic ultrasound 11/30/2022 History: Abnormal heavy vaginal bleeding Comparison: None The uterus is anteverted measuring 8.5 x 6.3 x 5.8 cm. An apparent fibroid on the left side of the uterine body measures up to 2.1 cm. This is abutting the serosal surface. Endometrial thickness is 14 mm without fluid collection. Right ovary measures 3.4 x 1.6 x 2.9 cm. Left ovary measures 3.6 x 1.8 x 4.0 cm. Both are normal. Vascular flow is seen on both sides. There is no pelvic free fluid. Urinary bladder is normal. Impression: Nonspecific mild endometrial stripe prominence without fluid or definitive mass. Apparent left-sided uterine fibroid without other acute process. Electronically Signed By: Conrado Robins M.D., 11/30/2022 12:38 PM Legally authenticated by JULIENNE COHEN 2022-11-30 12:38:42FIDENCIO ROBINS
--- NOTE | 2024-10-22 14:53 | RAD REPORT ---
Exam:Knee Left 3 View HISTORY: Left knee pain FINDINGS: No fracture or dislocation seen If the patient continues to have symptoms to suggest an occult fracture, ligamentous or meniscal inju ry then MRI would be recommended
--- NOTE | 2024-10-22 14:54 | RAD REPORT ---
EXAMINATION: Tib Fib Left CLINICAL INDICATION: Leg pain FINDINGS: No fracture seen
--- NOTE | 2024-10-22 15:07 | EDPHYS ---
Physician Documentation [facility] Name: Clarissa Castillo Age: 44 yrs Sex: Female : 1980 Arrival Date: 10/22/2024 Time: 13:59 Bed 9 Private MD: ED Physician Pedro Ramsey HPI: 10/22 14:33 This 44 yrs old Female presents to ER via Ambulatory with complaints of Fall Injury, rn Knee Injury. 14:33 Details of fall: The patient fell from an upright position. Onset: The symptoms/episode rn began/occurred yesterday. Associated injuries: The patient sustained Left lower leg. Severity of symptoms: At their worst the symptoms were moderate, in the emergency department the symptoms are unchanged. The patient has not experienced similar symptoms in the past. Patient reports slipped on dog urine yesterday, fell and injured left lower leg. Patient reports pain just distal to the left knee and radiates to left ankle. Patient reports able to ambulate with pain but was able to go to work today. Does a lot of bending and lifting at work and unable to do all of her normal duties so came in for evaluation.. Historical: - Allergies: 14:19 Codeine; iw 14:19 Darvocet-N 100; iw 14:19 Lortab; iw - Immunization history:: Adult Immunizations up to date. - Infectious Disease History:: Denies. - Family history:: not pertinent. - Hospitalizations: : No recent hospitalization is reported. - Social history:: Smoking status: Patient denies any tobacco usage or history of. ROS: 14:35 Constitutional: Negative for fever, chills, and weight loss, Cardiovascular: Negative rn for chest pain, palpitations, and edema, Respiratory: Negative for shortness of breath, cough, wheezing, and pleuritic chest pain, Abdomen/GI: Negative for abdominal pain, nausea, vomiting, diarrhea, and constipation, Back: Negative for injury and pain, MS/Extremity: Positive for left knee and leg pain and injury Skin: Negative for injury, rash, and discoloration, Neuro: Negative for headache, weakness, numbness, tingling, and seizure, Exam: 14:35 Constitutional: This is a well developed, well nourished patient who is awake, alert, rn and in no acute distress. MS/ Extremity: Pulses equal, no cyanosis. Neurovascular intact. No tenderness of patella. Mild tenderness along left lateral knee. No effusion. Moderate tenderness proximal tibia. No tenderness of ankle or either malleolus. No tenderness or deformity of foot. Slight ecchymosis and proximal pretibial region but nowhere else. No tenderness of proximal fibula. Neuro: Awake and alert, GCS 15 Vital Signs: 14:18 BP 135 / 94; Pulse 72; Resp 16; Temp 97.2; Pulse Ox 100% on R/A; Pain 7/10; iw 14:18 Pain Scale: Adult iw MDM: 14:03 Medical Screening Exam initiated rn 15:06 Differential diagnosis: fracture, sprain, strain, Ligamentous tear, fracture. Data rn reviewed: vital signs, nurses notes, radiologic studies, plain films, and as a result, I will discharge patient. Counseling: I had a detailed discussion with the patient and/or guardian regarding the historical points, exam findings, and any diagnostic results supporting the discharge/admit diagnosis, radiology results, the need for outpatient follow up, to return to the emergency department if symptoms worsen or persist or if there are any questions or concerns that arise at home. Special discussion: I discussed with the patient/guardian in detail that at this point there is no indication for admission to the hospital. It is understood, however, that if the symptoms persist or worsen the patient needs to return immediately for re-evaluation. Further emergent ED testing is not indicated at this point in time. I discussed with the patient/guardian in detail the need to arrange with the PCP or specialist further outpatient testing, MRI, Based on the history and exam findings, there is no indication for further emergent testing or inpatient evaluation. I discussed with the patient/guardian the need to see the orthopedic surgeon for further evaluation of the symptoms. 10/22 14:25 Order name: XRAY Knee LEFT 3 view; Complete Time: 14:56 rn 10/22 14:25 Order name: XRAY Tib Fib LEFT; Complete Time: 14:56 rn 10/22 14:57 Order name: Knee Immobilizer; Complete Time: 15:37 rn 10/22 14:57 Order name: Crutches; Complete Time: 15:37 rn Administered Medications: 15:23 Drug: Ibuprofen PO 800 mg PO once Route: PO; kc6 15:45 Follow up: Response: No adverse reaction kc6 Disposition Summary: 10/22/24 15:07 Discharge Ordered Notes: Location: Home rn Problem: new rn Symptoms: have improved rn Condition: Stable rn Diagnosis - Pain in left lower leg rn - Sprain of other specified parts of left knee rn Followup: rn - With: Roger Hi MD - When: As needed - Reason: Recheck today's complaints, Re-evaluation by your physician Discharge Instructions: - Discharge Summary Sheet rn - Crutch Use, Adult rn - How to Use a Knee Immobilizer rn - Knee Sprain, Adult rn Forms: - Medication Reconciliation Form rn - Antibiotic software intern - Prescription Opioid Use rn - Patient Portal Instructions rn - Leadership Thank You Letter rn - Work release form kc6 Signatures: Dispatcher [employer] Laurence Galindo, RN Pedro Andujar MD MD rn Campbell, Kaitlyn, RN RN kc6
--- NOTE | 2024-10-22 15:07 | ER ---
Nurse's Notes [facility] Name: Clarissa Castillo Age: 44 yrs Sex: Female : 1980 Arrival Date: 10/22/2024 Time: 13:59 Bed 9 Private MD: Diagnosis: Pain in left lower leg;Sprain of other specified parts of left knee Presentation: 10/22 14:18 Chief complaint: Patient states: slipped and fell yesterday morning, injured her left iw knee, she worked all day yesterday and the angel is still there, I cannot sleep because of the pain. Coronavirus screen: At this time, the client does not indicate any symptoms associated with coronavirus-19. Ebola Screen: No symptoms or risks identified at this time. Initial Sepsis Screen: Does the patient meet any 2 criteria? No. Patient's initial sepsis screen is negative. Does the patient have a suspected source of infection? No. Patient's initial sepsis screen is negative. Risk Assessment: Do you want to hurt yourself or someone else? Patient reports no desire to harm self or others. Onset of symptoms was October 21, 2024. 14:18 Method Of Arrival: Ambulatory iw 14:18 Acuity: RUPINDER 4 iw Triage Assessment: 14:20 General: Appears in no apparent distress. Behavior is calm, cooperative. Pain: iw Complains of pain in left knee Pain currently is 8 out of 10 on a pain scale. Neuro: Level of Consciousness is awake, alert, obeys commands, Oriented to person, place, time, situation, Moves all extremities. Full function. Musculoskeletal: Range of motion: limited in left knee. Historical: - Allergies: 14:19 Codeine; iw 14:19 Darvocet-N 100; iw 14:19 Lortab; iw - Immunization history:: Adult Immunizations up to date. - Infectious Disease History:: Denies. - Family history:: not pertinent. - Hospitalizations: : No recent hospitalization is reported. - Social history:: Smoking status: Patient denies any tobacco usage or history of. Screenin:23 [facility] ED Fall Risk Assessment (Adult) History of falling in the last 3 months, iw including since admission Yes- single mechanical fall (1 pt) Confusion or Disorientation No (0 pts) Intoxicated or Sedated No (0 pts) Impaired Gait Yes (1 pt) Mobility Assist Device Used No (0 pt) Altered Elimination No (0 pt) Score/Fall Risk Level 0 - 2 = Low Risk Oriented to surroundings, Maintained a safe environment. 15:44 Abuse screen: Denies threats or abuse. Denies injuries from another. Nutritional kc6 screening: No deficits noted. Tuberculosis screening: No symptoms or risk factors identified. Assessment: 15:43 General: Appears in no apparent distress. uncomfortable, well groomed, well developed, kc6 Behavior is calm, cooperative, appropriate for age. Pain: Complains of pain in left katz and left knee. Neuro: Level of Consciousness is awake, alert, obeys commands, Oriented to person, place, time, situation, Appropriate for age. Derm: Skin is intact, is healthy with good turgor, Skin is pink, warm \T\ dry. Bruising that is bright red, on left katz. Musculoskeletal: Capillary refill < 3 seconds, Range of motion: limited in left knee Swelling present in left knee. Vital Signs: 14:18 BP 135 / 94; Pulse 72; Resp 16; Temp 97.2; Pulse Ox 100% on R/A; Pain 7/10; iw 14:18 Pain Scale: Adult iw ED Course: 14:02 Patient arrived in ED. al6 14:03 Pedro Ramsey MD is Attending Physician. rn 14:19 Triage completed. iw 14:20 Arm band placed on. iw 14:42 XRAY Knee LEFT 3 view In Process Unspecified. EDMS 14:42 XRAY Tib Fib LEFT In Process Unspecified. EDMS 14:59 Patient placed in an exam room, on a stretcher. ll1 15:04 Saida Jimenes, GABBY is Primary Nurse. kc6 15:06 Roger Hi MD is Referral Physician. rn 15:43 No provider procedures requiring assistance completed. Patient did not have IV access kc6 during this emergency room visit. Patient maintains SpO2 saturation greater than 95% on room air. Crutch training done. Knee immobilizer applied on left knee. 15:44 Patient has correct armband on for positive identification. Bed in low position. Call kc6 light in reach. Side rails up X 1. Pulse ox on. NIBP on. Door closed. Noise minimized. Lights dimmed. Warm blanket given. Pillow given. Verbal reassurance given. Administered Medications: 15:23 Drug: Ibuprofen PO 800 mg PO once Route: PO; kc6 15:45 Follow up: Response: No adverse reaction kc6 Medication: 14:23 VIS not applicable for this client. Outcome: 15: Discharge ordered by . rn 15:44 Discharged to home ambulatory, kc6 15:44 Condition: good 15:44 Discharge instructions given to patient, Instructed on discharge instructions, follow up and referral plans. crutch walking, Demonstrated understanding of instructions, follow-up care, crutch walking, 15:45 Patient left the ED. kc6 Signatures: Dispatcher [employer] EDMS Laurence Bermudez RN RN iw Pedro Ramsey MD MD rn Lewis, Lynsay, RN RN ll1 Saida Jimenes RN RN kc6 Tammy Quezada
[2024-10-22] MEDS ORDERED: IBUPROFEN 400 MG TAB ONE (15:17)
[2024-10-22 15:49] VITALS: BP 135/94; TEMP 97.2; O2SAT 100
== END 2024-10-22 15:45 | disposition home or self-care (01) ==
LOC: ER 13:59
DX: S83.8X2A Sprain of other specified parts of left knee, initial encounter (principal); W01.0XXA Fall on same level from slipping, tripping and stumbling without subsequent striking against object, initial encounter
CPT/HCPCS: 99284